=== PATIENT | female | born 1930 | race Caucasian/White ===

== ENCOUNTER 2017-11-30 21:02 | Inpatient (IN) | payer OTHER ==
--- NOTE | 2017-11-30 21:26 | PDOC ---
Rapid Medical Evaluation Chief Complaint: Cold Symptoms Time Seen by Provider: 11/30/17 21:20 Medical Evaluation: Allergies Allergy/AdvReac Type Severity Reaction Status Date / Time epinephrine AdvReac Elevated Verified 02/15/16 11:14 Blood Pressure 11/30/17 21:21 c/o chest congestion, cough and left sided chest painx 1 week. seen at [facility] . chest xray infiltrate cannot be excluded recommends CT pmhx: Hypothyroid, htn PMD: Dr. Patel Gardner PE: Patient alert ox3 coarse breath sounds A: chest pain \Plan: labs chest CT patient to the ER for further management of care. Discharge Disposition - Diagnosis Chest pain at rest - Referrals - Patient Instructions - Post Discharge Activity
[2017-11-30 22:13] LABS: BASO % 0.3 % (0-2.0); HEMATOCRIT 48.1 % (32.4-45.2); LYMPH % 6.7 % (8-40); MCH 31.4 pg (25.7-33.7); MCHC 33.3 g/dl (32.0-36.0); MEAN CELL VOLUME 94.1 fl (80-96); MEAN PLT VOLUME 8.5 fl (7.5-11.1); MONO % 8.2 % (3.8-10.2); NEUT % 84.8 % (42.8-82.8); PLATELET COUNT 179 K/MM3 (134-434); RBC 5.11 M/mm3 (3.60-5.2); RDW 13.8 % (11.6-15.6); WHITE BLOOD COUNT 18.4 K/mm3 (4.0-10.0)
[2017-11-30 22:37] LABS: INR 1.1 (0.82-1.09); PROTHROMBIN TIME (PATIENT) 12.4 SEC (9.7-13.0)
[2017-11-30 22:43] LABS: ALBUMIN 3.4 g/dl (3.4-5.0); ANION GAP 10 (8-16); BILIRUBIN,TOTAL 2.1 mg/dL (0.2-1.0); BLOOD UREA NITROGEN 14 mg/dL (7-18); CALCIUM 9.2 mg/dL (8.5-10.1); CHLORIDE 99 mmol/L (98-107); CO2 25 mmol/L (21-32); CREATININE 0.8 mg/dL (0.55-1.02); GLUCOSE,RANDOM 113 mg/dL (74-106); SGPT/ALT 27 U/L (12-78); SODIUM 134 mmol/L (136-145)
[2017-11-30 22:46] LABS: ALK PHOS 114 U/L (45-117); TOT PROT 7.9 g/dl (6.4-8.2)
--- NOTE | 2017-11-30 22:47 | PDOC ---
History of Present Illness - General History Source: Patient, Other Exam Limitations: No Limitations - History of Present Illness Initial Comments: 11/30/17 22:59 The patient is a 87 year old female, with a significant past medical history of HTN, diabetes (hypoglycemia, MVP, cardiomegaly and thyroid disease, who presents to the ED complaining of chest pain, post nasal drip, cough and chest constipation for the past week. She notes that she went to urgent care today and a chest x-ray was taken. She was told that she had interstitial lung disease , infiltration cannot be ruled out. She was advised to come to the ED for further evaluation. The patient denies shortness of breath, headache and dizziness. Denies fever, chills, nausea, vomiting, diarrhea or constipation. Denies dysuria, frequency, urgency and hematuria. Allergies: Epinephrine Past surgical history: Appendectomy, bilateral hip replacement Social history: No alcohol, tobacco or drug use reported PMD: Dr. Patel Gardner <Juan Andrade - Last Filed: 11/30/17 22:59> <Kavya Bueno - Last Filed: 12/01/17 01:18> - General Chief Complaint: Respiratory Stated Complaint: COUGH Time Seen by Provider: 11/30/17 21:20 Past History <Juan Andrade - Last Filed: 11/30/17 22:59> - Past Medical History COPD: No Diabetes: Yes (hyopglycemia) HTN: Yes Thyroid Disease: Yes - Surgical History Appendectomy: Yes - Suicide/Smoking/Psychosocial Hx Smoking Status: No Smoking History: Never smoked Number of Cigarettes Smoked Daily: 0 Information on smoking cessation initiated: No Hx Alcohol Use: No Drug/Substance Use Hx: No Substance Use Type: None <Kavya Bueno - Last Filed: 12/01/17 01:18> - Past Medical History Allergies/Adverse Reactions: Allergies Allergy/AdvReac Type Severity Reaction Status Date / Time epinephrine AdvReac Elevated Verified 02/15/16 11:14 Blood Pressure Home Medications: Ambulatory Orders Ramipril 2.5 mg PO DAILY 08/20/14 Spironolactone [Aldactone -] 25 mg PO DAILY 08/20/14 Thyroid,Pork [[place] Thyroid] 60 mg PO DAILY 08/20/14 Review of Systems - Review of Systems Able to Perform ROS?: Yes Comments:: 11/30/17 22:59 GENERAL/CONSTITUTIONAL: No fever or chills. No weakness. HEAD, EYES, EARS, NOSE AND THROAT: (+) Post nasal drip. No change in vision. No ear pain or discharge. No sore throat. GASTROINTESTINAL: No nausea, vomiting, diarrhea or constipation. GENITOURINARY: No dysuria, frequency, or change in urination. CARDIOVASCULAR: (+) Chest pain. No shortness of breath. RESPIRATORY: (+) Cough, chest congestion. No wheezing, or hemoptysis. MUSCULOSKELETAL: No joint or muscle swelling or pain. No neck or back pain. SKIN: No rash NEUROLOGIC: No headache, vertigo, loss of consciousness, or change in strength/ sensation. ENDOCRINE: No increased thirst. No abnormal weight change. HEMATOLOGIC/LYMPHATIC: No anemia, easy bleeding, or history of blood clots. ALLERGIC/IMMUNOLOGIC: No hives or skin allergy. <Juan Andrade - Last Filed: 11/30/17 22:59> *Physical Exam - Vital Signs Last Vital Signs Temp Pulse Resp BP Pulse Ox 98.2 F 100 H 20 159/95 96 11/30/17 21:20 11/30/17 21:20 11/30/17 21:20 11/30/17 21:20 11/30/17 21:20 - Physical Exam Comments: 11/30/17 23:00 Constitutional: Awake, alert, oriented. No acute distress. Head: Normocephalic. Atraumatic Eyes: PERRL. EOMI. Conjunctivae are not pale. ENT: Mucous membranes are moist and intact. Posterior pharynx without exudates or erythema. Uvula midline. Neck: Supple. Full ROM. No lymphadenopathy. Cardiovascular: Regular rate. Regular rhythm. S1, S2 regular. Distal pulses are 2+ and symmetric. Pulmonary/Chest: (+) Rales and coarse breath sound diffusely bilaterally. Abdominal: Soft and non-distended. There is no tenderness. No rebound, guarding or rigidity. No organomegaly. No palpable masses. Good bowel sounds. Back: No CVA tenderness. Musculoskeletal: No edema. No cyanosis. No clubbing. Full range of motion in all extremities. Nocalf tenderness. Radial/pedal pulses are intact and 2+ bilaterally Skin: Skin is warm and dry. No petechiae. No purpura. Neurological: Alert and oriented to person, place, and time. Cranial nerves II -XII are grossly intact. Normal speech. Strength is grossly symmetric. No sensory deficits. Psychiatric: Good eye contact. Normal interaction, affect and behavior. <Juan Andrade - Last Filed: 11/30/17 22:59> - Vital Signs Last Vital Signs Temp Pulse Resp BP Pulse Ox 98.2 F 100 H 20 159/95 96 11/30/17 21:20 11/30/17 21:20 11/30/17 21:20 11/30/17 21:20 11/30/17 21:20 <Kavya Bueno - Last Filed: 12/01/17 01:18> Heart Score/ECG Review - ECG Intrepretation Comment:: 11/30/17 22:46 sinus at 98, RBBB, L axis, abnl ekg, unchanged from prior 11/30/17 22:48 <Kavya Bueno - Last Filed: 12/01/17 01:18> ED Treatment Course - LABORATORY CBC & Chemistry Diagram: 11/30/17 21:56 11/30/17 21:56 - ADDITIONAL ORDERS Additional order review: Laboratory Results 11/30/17 21:56 PT with INR 12.40 INR 1.10 11/30/17 21:56 RBC 5.11 MCV 94.1 MCHC 33.3 RDW 13.8 MPV 8.5 Neutrophils % 84.8 H Lymphocytes % 6.7 L D Monocytes % 8.2 D Eosinophils % 0.0 D Basophils % 0.3 <Juan Andrade - Last Filed: 11/30/17 22:59> - LABORATORY CBC & Chemistry Diagram: 11/30/17 21:56 11/30/17 21:56 - ADDITIONAL ORDERS Additional order review: Laboratory Results 11/30/17 21:56 PT with INR 12.40 INR 1.10 11/30/17 21:56 RBC 5.11 MCV 94.1 MCHC 33.3 RDW 13.8 MPV 8.5 Neutrophils % 84.8 H Lymphocytes % 6.7 L D Monocytes % 8.2 D Eosinophils % 0.0 D Basophils % 0.3 <Kavya Bueno - Last Filed: 12/01/17 01:18> Medical Decision Making - Medical Decision Making 11/30/17 22:44 a/p: 87yo female presents for eval of cough x 1 week -dry cough, but feels rattling in her chest -post nasal gtt -sent from urgent care for poss interstitial lung disease with poss overlying pna -will sned labs, cultures, will obtain ct chest -will monitor and reassess 12/01/17 01:17 pt with bronchiectasis on imaigng concern for poss pna on imaging - abx ordered elevated wbc - concern given SOB and PNA. outpt cxr showed poss interstitial lung disease case discussed with Dr. Medellin from [facility] who accepts the patient to service. <Kavya Bueno - Last Filed: 12/01/17 01:18> *DC/Admit/Observation/Transfer - Attestations Scribe Attestion: 11/30/17 23:00 Documentation prepared by Juan Andrade, acting as medical laboratory technicians for Kavya Bueno DO <Juan Andrade - Last Filed: 11/30/17 22:59> <Kavya Bueno - Last Filed: 12/01/17 01:18> Diagnosis at time of Disposition: Chest pain at rest
[2017-11-30 23:02] LABS: MAGNESIUM 2.1 mg/dL (1.8-2.4); POTASSIUM 4.3 mmol/L (3.5-5.1)
[2017-11-30 23:03] LABS: SGOT/AST 35 U/L (15-37)
[2017-11-30] MEDS ORDERED: AZITHROMYCIN IVPB 500 MG in DEXTROSE 5%-WATER - 250 ML IVPB ONE (23:59)
[2017-11-30] MEDS ORDERED: CEFTRIAXONE 1 GM in DEXTROSE 5%-WATER - 100 ML IVPB ONE (23:59)
[2017-12-01] MEDS ORDERED: AZITHROMYCIN IVPB 250 ML IVPB ONE (01:14)
[2017-12-01] MEDS ORDERED: CEFTRIAXONE 1 GM/50 ML BAG ONE ×2 (01:14)
[2017-12-01] MEDS ORDERED: AZITHROMYCIN IVPB 500 MG in DEXTROSE 5%-WATER - 250 ML IVPB ONE (02:57)
--- NOTE | 2017-12-01 03:20 | HP ---
CHIEF COMPLAINT: cough shortness of breath, difficulty breathing PCP: HISTORY OF PRESENT ILLNESS: 87 y/o female with PMH HTN, DM, MVP, cardiomegaly, hypothyroidism presents with c/o difficulty breathing for the past week. Admits to gradual onset with associated non productive cough. States she feels mucus in the chest which makes it difficult to breathe, but cannot expel much mucus. Admits to chest tightness and pain with coughing. Denies past occurrence of similar symptoms. Went to [facility] urgent care today, and was told to come to ED. Denies: fevers, chills, palpitations, nausea, vomiting, diarrhea, constipation, hematuria, hematochezia, falls, LOC. ER course was notable for: (1) CT chest (2) Azithromycin, ceftriaxone (3) Recent Travel: PAST MEDICAL HISTORY: HTN, DM, MVP, cardiomegaly, hypothyroidism PAST SURGICAL HISTORY: Appendectomy, B/L hip replacement Social History: Smoking: denies Alcohol: denies Drugs: denies Family History: Allergies epinephrine Adverse Reaction (Verified 02/15/16 11:14) Elevated Blood Pressure HOME MEDICATIONS: Home Medications Medication Instructions Recorded Ramipril 2.5 mg PO DAILY 08/20/14 Spironolactone [Aldactone -] 25 mg PO DAILY 08/20/14 Thyroid [[place] Thyroid] 15 mg PO DAILY 12/01/17 REVIEW OF SYSTEMS CONSTITUTIONAL: Absent: fever, chills, diaphoresis, HEENT: Absent: rhinorrhea, nasal congestion, throat pain,difficulty swallowing CARDIOVASCULAR: Absent: syncope, palpitations, peripheral edema RESPIRATORY: Admits: cough, shortness of breath. Denies hemoptysis GASTROINTESTINAL: Absent: abdominal pain, abdominal distension, nausea, vomiting, diarrhea, constipation, hematochezia GENITOURINARY: Absent: dysuria, hematuria NEUROLOGIC: Absent: headache, focal weakness, dizziness, unsteady gait, PHYSICAL EXAMINATION Vital Signs - 24 hr 11/30/17 21:20 Temperature 98.2 F Pulse Rate 100 H Respiratory 20 Rate Blood Pressure 159/95 O2 Sat by Pulse 96 Oximetry (%) GENERAL: Awake, alert, and fully oriented, in no acute distress. HEAD: Normal with no signs of trauma. EYES: Pupils equal, round and reactive to light, extraocular movements intact EARS, NOSE, THROAT: Moist mucous membranes, LUNGS: Slight rhonchi auscultated B/L. No wheezes. HEART: Regular rate and rhythm, normal S1 and S2. No murmur ABDOMEN: Soft, nontender, not distended, normoactive bowel sounds, no guarding, no rebound. EXTREMITIES: 2+ pulses, warm, well-perfused. No peripheral edema in lower extremities. NEUROLOGICAL: Cranial nerves II-XII intact. Normal speech. Normal gait. PSYCHIATRIC: Cooperative. Appropriate mood and affect. Laboratory Results - last 24 hr 11/30/17 11/30/17 11/30/17 21:56 21:56 21:56 WBC 18.4 H RBC 5.11 Hgb 16.0 H Hct 48.1 H MCV 94.1 MCH 31.4 MCHC 33.3 RDW 13.8 Plt Count 179 MPV 8.5 Absolute Neuts (auto) 15.6 Neutrophils % 84.8 H Lymphocytes % 6.7 L D Monocytes % 8.2 D Eosinophils % 0.0 D Basophils % 0.3 Nucleated RBC % 0 PT with INR 12.40 INR 1.10 Sodium 134 L Potassium 4.3 Chloride 99 Carbon Dioxide 25 Anion Gap 10 BUN 14 Creatinine 0.8 Creat Clearance w eGFR > 60 Random Glucose 113 H Calcium 9.2 Magnesium 2.1 Total Bilirubin 2.1 H AST 35 ALT 27 Alkaline Phosphatase 114 Creatine Kinase 128 Troponin I < 0.02 B-Natriuretic Peptide Total Protein 7.9 Albumin 3.4 11/30/17 21:56 WBC RBC Hgb Hct MCV MCH MCHC RDW Plt Count MPV Absolute Neuts (auto) Neutrophils % Lymphocytes % Monocytes % Eosinophils % Basophils % Nucleated RBC % PT with INR INR Sodium Potassium Chloride Carbon Dioxide Anion Gap BUN Creatinine Creat Clearance w eGFR Random Glucose Calcium Magnesium Total Bilirubin AST ALT Alkaline Phosphatase Creatine Kinase Troponin I B-Natriuretic Peptide 561.80 H Total Protein Albumin ASSESSMENT/PLAN: 87 y/o female w/ PMH HTN, DM, MVP, cardiomegaly, hypothyroidism presents with difficulty breathing and non productive cough for past [address] chest showed fibrosis and scarring sugestive of ILD White count 18.4 -Begin ceftriaxone and azithromycin -Begin solumedrol -Pulmonary consult placed -f/u blood cx Pulmonary nodules -?Malignancy -Heme/Onc consult placed. Elevated BNP -Echocardiography to assess CHF FEN -No IV fluids at this time d/t possible CHF -No electrolyte repletion -DM diet Prophylaxis -Lovenox 40mg subq [id number] Advance directives: full code Disposition: admit to medical-surgical floor Case discussed with operations manager/coordinator attending Wellington Love DO PGY1 Visit type - Emergency Visit Emergency Visit: Yes ED Registration Date: 12/01/17 Care time: The patient presented to the Emergency Department on the above date and was hospitalized for further evaluation of their emergent condition. - New Patient This patient is new to me today: Yes Date on this admission: 12/01/17 - Critical Care Critical Care patient: No Hospitalist Screening - Colonoscopy Questionnaire Colonoscopy Questionnaire: Colonoscopy Questionnaire - Patient: 50 - 75 years old and never had a screening colonoscopy: Unknown History of colon or rectal polyps, or CA: Unknown History of IBD, Crohn's disease or UC: Unknown History of abdominal radiation therapy as a child: Unknown - Relative: 1 with colon or rectal CA, or polyps at age 60 or younger: Unknown Colon or rectal CA diagnosed at age 45 or younger: Unknown Multiple relatives with colon or rectal CA: Unknown - Outcome: Screening Result: Negative Screen
--- NOTE | 2017-12-01 03:36 | PN ---
Teaching Attending Note Name of Resident: Wellington Love ATTENDING PHYSICIAN STATEMENT I saw and evaluated the patient. I reviewed the resident's note and discussed the case with the resident. I agree with the resident's findings and plan as documented. SUBJECTIVE: Patient is an 87 year old woman with history of HTN, DM, MVP, cardiomegaly, hypothyroidism, bilateral hip replacement who presents with complaint of difficulty breathing for the past week. Admits to gradual onset with associated non productive cough. States she feels mucus in the chest which makes it difficult to breathe, but cannot expel much mucus. Admits to chest tightness and pain with coughing. Denies past occurrence of similar symptoms. Went to [facility] urgent care, and was told to go to ER. Also has left ear pain. OBJECTIVE: Alert and in no acute respiratory distress Vital Signs Period Temp Pulse Resp BP Sys/Calderón Pulse Ox Last 24 Hr 98.2 F 100 20 159/95 96 HEENT: No Jaundice, eye redness or discharge, PERRLA, EOMI. Normocephalic, atraumatic. Tender left ear with fluid;hearing is grossly intact. No nasal discharge. Neck: Supple, nontender. No palpable adenopathy or thyromegaly. No JVD Chest: Good effort. Clear to auscultation and percussion. Heart: Regular. No S3, rub or murmur Abdomen: Not distended, soft, nontender and no HSM. No rebound or guarding. Normoactive bowel sounds. Ext: Peripheral pulses intact. No leg edema. Skin: Warm and dry. No petechiae, rash or ecchymosis. Neuro: Alert. Oriented x3. CN 2-12 grossly intact. Sensation grossly intact in all four extremities and DTR are symmetric. Current Medications Generic Name Dose Route Start Last Admin Trade Name Freq PRN Reason Stop Dose Admin Azithromycin 500 mg/ Dextrose 250 mls @ 250 mls/hr 12/01/17 02:57 12/01/17 03 :41 IVPB 12/01/17 03:56 Not Given ONCE ONE Ceftriaxone Sodium 1 gm/ 50 mls @ 100 mls/hr 12/01/17 10:00 Dextrose IVPB DAILY DANETTE Methylprednisolone Sodium Succinate 40 mg 12/01/17 03:00 Solu-Medrol - IVPUSH Q8H-IV DANETTE Home Medications Medication Instructions Recorded Ramipril 2.5 mg PO DAILY 08/20/14 Spironolactone [Aldactone -] 25 mg PO DAILY 08/20/14 Thyroid [[place] Thyroid] 15 mg PO DAILY 12/01/17 Abnormal Lab Results 11/30/17 11/30/17 11/30/17 21:56 21:56 21:56 WBC 18.4 H Hgb 16.0 H Hct 48.1 H Neutrophils % 84.8 H Lymphocytes % 6.7 L D Sodium 134 L Random Glucose 113 H Total Bilirubin 2.1 H B-Natriuretic Peptide 561.80 H ASSESSMENT AND PLAN: 1. Atypical pneumonia - CT scan of chest shows fibrosis and scarring with long nodules as well as lymphadenopathy. 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 She is oxygenating well and comfortable off oxygen. Will treat with IV Rocephin and Azithromycin for atypical pneumonia that may be superimposed on interstitial lung disease (? idiopathic). Will also give her solumedrol, check legionella antigen, consult ID and pulmonary. Workup for autoimmune diseases as well as sarcoidosis. get ECHO. 2. Left ear pain - May have otitis externa. She is already on antibiotics and steroids. Treat with acetic acid ear drops and consult ENT. 3. DVT prophylaxis - Lovenox 40 mg SQ q 24 hours. 4. Advance directives - Full code
[2017-12-01] MEDS ORDERED: methylPREDNISolone NA SUCC 40 MG/1 ML VIAL ONE (03:51)
[2017-12-01] MEDS: methylPREDNISolone NA SUCC 40 MG/1 ML VIAL IVPUSH SCH ×3 (03:55→17:25)
[2017-12-01 07:59] VITALS: BMI 23.3
[2017-12-01] MEDS ORDERED: PNEUMOC 13-VAL CONJ-DIP CRM/PF 0.5 ML DISP.SYRIN IM ONE (09:00)
--- NOTE | 2017-12-01 09:03 | PN ---
Progress Note (short form) - Note Progress Note: ID consult dictated imp/reccd 87 year old female admitted with nonproductive cough for one week, leukocytosis , abnl cxray/chest ct (results pending) ?ILD ?bronchiectasis recent anorexia, laryngitis acute illness no travel CAP- agree with rocephin/zith no hospitalizations, no outpt antibiotics legionella urinary antigen ?ILD, ?bronchiectasis- esr estephania/rf pulmonary to see Problem List - Problems (1) Pneumonia Code(s): J18.9 - PNEUMONIA, UNSPECIFIED ORGANISM (2) ILD (interstitial lung disease) Code(s): J84.9 - INTERSTITIAL PULMONARY DISEASE, UNSPECIFIED
--- NOTE | 2017-12-01 09:23 | EKG ---
Test Reason : Blood Pressure : / mmHG Vent. Rate : 098 BPM Atrial Rate : 098 BPM P-R Int : 174 ms QRS Dur : 134 ms QT Int : 366 ms P-R-T Axes : 030 -33 -15 degrees QTc Int : 467 ms NORMAL SINUS RHYTHM POSSIBLE LEFT ATRIAL ENLARGEMENT LEFT AXIS DEVIATION RIGHT BUNDLE BRANCH BLOCK ABNORMAL ECG WHEN COMPARED WITH ECG OF 20-AUG-2014 18:46, NO SIGNIFICANT CHANGE WAS FOUND Confirmed by MAIA JOSHI MD ([id number]) on 12/01/2017 9:23:38 AM Referred By: Confirmed By:MAIA JOSHI MD
[2017-12-01] MEDS ORDERED: cefTRIAXone SODIUM 1 GM VIAL ONE (09:38)
[2017-12-01] MEDS ORDERED: DEXTROSE 5%-WATER - 50 ML IVPB ONE (09:38)
--- NOTE | 2017-12-01 09:45 | CONS ---
DATE OF CONSULTATION: DATE OF DICTATION: 12/01/2017 This is an 87-year-old woman. She lives in the community. 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 She developed a cough about a week ago, accompanied by loss of appetite and weight loss. It has been a nonproductive cough. She has had some sweats at night. She overall has failed to improve. Yesterday as well she developed laryngitis. She went to an urgent care center yesterday where she had a chest x-ray done and advised to seek care in the emergency room. She denies actual fevers but has noted she has had some sweats. She has had no appetite. She has had no vomiting. She has no diarrhea or dysuria. She notes the loss of appetite since yesterday. She has no sore throat. PAST MEDICAL HISTORY: Notable for diabetes, hypertension, hypothyroidism. She has a history of mitral valve prolapse and cardiomegaly. PAST SURGICAL HISTORY: Notable for appendectomy, tonsillectomy and adenoid removal. She has had a left inguinal hernia repair, and she has had both her hips replaced. This was about 20 years ago. ALLERGIES: EPINEPHRINE. MEDICATIONS: Her medications as an outpatient include ramipril, spironolactone, and pork thyroid. She is followed by Dr. Justice Gardner in [place]. She reports the last time she had a chest x-ray was 2-3 years ago. SOCIAL HISTORY: She lives alone. 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 She was born and raised in [place]. Her last travel was 4 years ago to [place]. She lives in an apartment. There is no history of any cigarette use. REVIEW OF SYSTEMS: She denies shortness of breath. She denies any chest pain, and she denies sore throat. PHYSICAL EXAMINATION: General: She is awake and alert. Vital Signs: T-max is 99.6, pulse of 95, blood pressure 128/71. Respiratory rate is 18. She weighs 61 kg. HEENT: She is normocephalic. Her eyes are anicteric. She has no thrush or pharyngitis. Neck: Supple. Respiratory: Her lungs have crackles at the right base. Heart: Regular rate and rhythm. Abdomen: Firm, nontender. Extremities: Without edema. LABORATORY: White count is 18.4, hemoglobin 16. Platelets are 179. BUN and creatinine are 14 and 0.8. LFTs are normal. Blood cultures have been sent, and she had a CAT scan of the chest, results of which are pending, but to my eyes it looks like she has some interstitial lung disease with bronchiectasis as well. She has some left lower lobe and right lower lobe bronchiectasis and possible infiltrate. As well, she denies a history of tuberculosis. SUMMARY: This is an 87-year-old woman admitted with cough, leukocytosis, abnormal chest x-ray. Interestingly, she has a film here from 2011 that is normal, but she has not been admitted here. There is no history of any recent episodes of pneumonia. She reports an episode of bronchitis about 4-5 years ago, which is the last time she states she took antibiotics. Given this, I think it would be reasonable to treat her for community-acquired pneumonia. Would obtain a Legionella urinary antigen since it would be important to screen her for atypical pneumonia. Blood cultures have been sent. Would treat her with ceftriaxone and Zithromax. She has been started on steroids as well, so will order a sedimentation rate and CRP, though they may be of limited value, with further recommendations to follow. Will await the official reading of the CAT scan of her chest. CHINEDU FROST M.D. [id number]
[2017-12-01] MEDS ORDERED: CEFTRIAXONE 1 GM in DEXTROSE 5%-WATER - 50 ML IVPB SCH (10:00)
[2017-12-01] MEDS: ENOXAPARIN NA (PORCINE) 40 MG/0.4 ML DISP.SYRIN SQ SCH (10:07)
[2017-12-01] MEDS ORDERED: THYROID 15 MG TABLET PO SCH (10:30)
[2017-12-01] MEDS ORDERED: RAMIPRIL 2.5 MG CAPSULE (FP) PO SCH (10:30)
[2017-12-01 10:37] LABS: BASO % 0.1 % (0-2.0); HEMATOCRIT 41.2 % (32.4-45.2); HEMOGLOBIN 13.8 GM/dL (10.7-15.3); MCH 31.7 pg (25.7-33.7); MCHC 33.6 g/dl (32.0-36.0); MEAN CELL VOLUME 94.3 fl (80-96); MEAN PLT VOLUME 8.8 fl (7.5-11.1); NEUT % 94.9 % (42.8-82.8); PLATELET COUNT 157 K/MM3 (134-434); RBC 4.37 M/mm3 (3.60-5.2); RDW 13.6 % (11.6-15.6); WHITE BLOOD COUNT 19.8 K/mm3 (4.0-10.0)
[2017-12-01] MEDS: SPIRONOLACTONE 25 MG TABLET (FP) PO SCH (11:13)
[2017-12-01 11:14] LABS: CHLORIDE 100 mmol/L (98-107); POTASSIUM 4.1 mmol/L (3.5-5.1); SODIUM 134 mmol/L (136-145)
[2017-12-01 11:19] LABS: ANION GAP 9 (8-16); BLOOD UREA NITROGEN 12 mg/dL (7-18); CALCIUM 8.7 mg/dL (8.5-10.1); CO2 25 mmol/L (21-32); CREATININE 0.7 mg/dL (0.55-1.02); GLUCOSE,RANDOM 182 mg/dL (74-106); MAGNESIUM 2.2 mg/dL (1.8-2.4); PHOSPHOROUS 2.4 mg/dL (2.5-4.9)
[2017-12-01 12:39] LABS: ANISOCYTOSIS 2+; MACROCYTOSIS 0; PLATELET ESTIMATE DECREASED
[2017-12-01] MEDS: RAMIPRIL 5 MG CAPSULE (FP) PO SCH (13:41)
[2017-12-01] MEDS: THYROID 30 MG TABLET PO SCH (13:42)
--- NOTE | 2017-12-01 16:30 | PN ---
Progress Note (short form) - Note Progress Note: PULMONARY CONSULTATION DICTATED 12/01/17 IMP ADVANCED ILD/BRONCHIECTASIS ACUTE BRONCHITIS ,?PNEUMONIA BILATERAL PULMONARY NODULES ? INFLAMMATORY,?MALIGNANT HTN DM MVP PLAN IV STEROIDS INHALED BRONCHODILATORS O2 ABX PER ID SPUTUM C+S PFTS OUTPATIENT F/U CHEST CT [address] [place] Problem List - Problems (1) Bronchiectasis Code(s): J47.9 - BRONCHIECTASIS, UNCOMPLICATED (2) ILD (interstitial lung disease) Code(s): J84.9 - INTERSTITIAL PULMONARY DISEASE, UNSPECIFIED (3) Lung nodules Code(s): R91.8 - OTHER NONSPECIFIC ABNORMAL FINDING OF LUNG FIELD (4) HTN (hypertension) Code(s): I10 - ESSENTIAL (PRIMARY) HYPERTENSION (5) Mitral valve prolapse Code(s): I34.1 - NONRHEUMATIC MITRAL (VALVE) PROLAPSE
--- NOTE | 2017-12-01 17:05 | CONS ---
DATE OF CONSULTATION: 12/01/2017 PULMONARY CONSULTATION REFERRING PHYSICIAN: Angie Bryant M.D. HISTORY OF PRESENT ILLNESS: The patient is an 87-year-old white female with past medical history of hypertension, mitral valve prolapse, diabetes, cardiomegaly, hypothyroidism, nonsmoker, admitted to [facility] with complaint of 1-week history of increasing shortness of breath, cough, chest congestion, chills, and questionable fevers. Patient states the patient week she started developing a nonproductive cough. She also states she felt chills and has sweats at night. She also complains of chest tightness and increasing shortness of breath. She apparently went to a [facility] urgent care center on the day of admission, at which time she was told to go to the emergency room. In the emergency room she had CT scan of the chest which revealed evidence of extensive bilateral interstitial lung disease with bronchiectatic changes as well as two pulmonary nodules, one in the left lower lobe of 1 cm, as well as one in the right middle lobe of 4 mm. Patient denies any history of asthma or COPD. She denies any history of occupational exposures. She is a nonsmoker. Denies any weight loss or night sweats. Denies any hemoptysis. On admission, she was placed on inhaled bronchodilators, and steroids, evaluated by Dr. Hamlin from infectious disease and placed on antibiotics for possible pneumonia. The patient also gives a history of past year or so progressive increasing shortness of breath and dyspnea on exertion for walking up inclines. Denies any chest pains or palpitations associated with this. She apparently states she has had x-rays in the past, was not informed of any abnormalities. PAST MEDICAL HISTORY: Again includes mitral valve prolapse, hypertension, diabetes, cardiomegaly, and hypothyroidism. REVIEW OF SYSTEMS: Positive cough. Positive chest congestion. Question subjective fevers. Positive chills. No chest pain. No palpitations. No abdominal pain. No lower extremity edema. CURRENT MEDICATIONS: Include Solu-Medrol 40 q.8, Altace, ceftriaxone, Lovenox, Aldactone, and [place] Thyroid. PHYSICAL EXAMINATION: General: The patient is an elderly white female, well-developed, awake, alert, in no acute distress. Vital signs: She is afebrile. Blood pressure 116/62, respiratory rate 18, O2 saturation is 95% on room air. HEENT: Head is normocephalic, atraumatic. Neck: Supple. Heart: Regular. S1, S2. Chest: Bilateral crackles, a few scattered bilateral rhonchi. Abdomen: Soft. Bowel sounds positive. Extremities: No cyanosis, edema. LABORATORY: WBC is 19.8, hemoglobin 13.8, hematocrit 41.2, platelet count of 157,000. There were 94 polys and 3 lymphocytes. INR is 1.10. Sodium 134, BUN 12, creatinine 0.7, BNP 561. Chest CT, again as noted, revealed extensive bronchiectatic changes, extensive chronic interstitial lung disease bilaterally with extensive fibrosis and extensive bronchiectasis, most pronounced within the lingula and left upper lobe. There is 1 cm nodule left lung base and 4 mm nodule right middle lobe. IMPRESSION: 1. Interstitial lung disease. Left lower lobe nodule and right middle lobe nodule, possible inflammatory, possible malignancy. 2. Bronchiectasis. 3. Rule out possible pneumonia versus acute bronchitis. 4. Hypertension. 5. Mitral valve prolapse. PLAN: Continue antibiotic therapy as per infectious disease. Inhaled bronchodilators. Supplemental O2. IV steroids. Include an ESR, SUNSHINE rheumatoid factor, PFTs as outpatient. Also obtain followup chest CT in 3 months to document stability of pulmonary nodules if evidence of interval growth, would recommend PET scan as well as possible biopsy. STEPHENIE BRADFORD M.D. TOSHIA/[id number] MTDD
--- NOTE | 2017-12-01 18:32 | PN ---
Teaching Attending Note Name of Resident: Harris Hong ATTENDING PHYSICIAN STATEMENT I saw and evaluated the patient. I reviewed the resident's note and discussed the case with the resident. I agree with the resident's findings and plan as documented with exceptions below. SUBJECTIVE: Patient seen and examined, breathing improved, no fevers, chills or new concerns. feels better today. OBJECTIVE: Vital Signs Period Temp Pulse Resp BP Sys/Calderón Pulse Ox Last 24 Hr 97.6 F-99.6 F 87-100 18-20 116-159/62-95 94-99 Intake & Output 11/28/17 11/29/17 11/30/17 12/01/17 23:59 23:59 23:59 23:59 Intake Total 580 Balance 580 Weight 150 lb 136 lb 1.6 oz General: sitting in bed, able to talk in full sentences Chest: decreased air entry, fine scattered rales Abdomen:soft, NT, ND Extremities: no edema Home Medications Medication Instructions Recorded Ramipril 5 mg PO DAILY 08/20/14 Spironolactone [Aldactone -] 25 mg PO DAILY 08/20/14 Cyanocobalamin Vit B-12 Inj. 1,000 mcg IJ MONTHLY 12/01/17 [Redisol] Thyroid [[place] Thyroid] 30 mg PO DAILY 12/01/17 Active Medications Enoxaparin Sodium (Lovenox -) 40 mg SQ DAILY [facility] Last Admin: 12/01/17 10:07 Dose: 40 mg Ceftriaxone Sodium 1 gm/ (Dextrose) 50 mls @ 100 mls/hr IVPB DAILY [facility] Methylprednisolone Sodium Succinate (Solu-Medrol -) 40 mg IVPUSH Q8H-IV [facility] Last Admin: 12/01/17 17:25 Dose: 40 mg Ramipril (Altace -) 5 mg PO DAILY [facility] Last Admin: 12/01/17 13:41 Dose: 5 mg Spironolactone (Aldactone -) 25 mg PO DAILY [facility] Last Admin: 12/01/17 11:13 Dose: 25 mg Thyroid ([place] Thyroid -) 30 mg PO DAILY [facility] Last Admin: 12/01/17 13:42 Dose: 30 mg Laboratory Results - last 24 hr 11/30/17 11/30/17 11/30/17 21:56 21:56 21:56 WBC 18.4 H RBC 5.11 Hgb 16.0 H Hct 48.1 H MCV 94.1 MCH 31.4 MCHC 33.3 RDW 13.8 Plt Count 179 MPV 8.5 Absolute Neuts (auto) 15.6 Neutrophils % 84.8 H Neutrophils % (Manual) Band Neutrophils % Lymphocytes % 6.7 L D Lymphocytes % (Manual) Monocytes % 8.2 D Monocytes % (Manual) Eosinophils % 0.0 D Eosinophils % (Manual) Basophils % 0.3 Basophils % (Manual) Myelocytes % (Man) Promyelocytes % (Man) Blast Cells % (Manual) Nucleated RBC % 0 Metamyelocytes Hypochromia Platelet Estimate Polychromasia Poikilocytosis Anisocytosis Microcytosis Macrocytosis PT with INR 12.40 INR 1.10 Sodium 134 L Potassium 4.3 Chloride 99 Carbon Dioxide 25 Anion Gap 10 BUN 14 Creatinine 0.8 Creat Clearance w eGFR > 60 Random Glucose 113 H Calcium 9.2 Phosphorus Magnesium 2.1 Total Bilirubin 2.1 H AST 35 ALT 27 Alkaline Phosphatase 114 Creatine Kinase 128 Troponin I < 0.02 B-Natriuretic Peptide Total Protein 7.9 Albumin 3.4 11/30/17 12/01/17 12/01/17 21:56 10:03 10:03 WBC 19.8 H RBC 4.37 Hgb 13.8 Hct 41.2 MCV 94.3 MCH 31.7 MCHC 33.6 RDW 13.6 Plt Count 157 MPV 8.8 Absolute Neuts (auto) 18.7 Neutrophils % 94.9 H Neutrophils % (Manual) 90.8 H Band Neutrophils % 3.7 Lymphocytes % 3.0 L D Lymphocytes % (Manual) 0.9 L Monocytes % 2.0 L Monocytes % (Manual) 4 Eosinophils % 0.0 Eosinophils % (Manual) 0.0 Basophils % 0.1 Basophils % (Manual) 0.0 Myelocytes % (Man) 0 Promyelocytes % (Man) 0 Blast Cells % (Manual) 0 Nucleated RBC % 0 Metamyelocytes 1 Hypochromia 0 Platelet Estimate Decreased Polychromasia 0 Poikilocytosis 0 Anisocytosis 2+ Microcytosis 2+ Macrocytosis 0 PT with INR INR Sodium 134 L Potassium 4.1 Chloride 100 Carbon Dioxide 25 Anion Gap 9 BUN 12 Creatinine 0.7 Creat Clearance w eGFR > 60 Random Glucose 182 H Calcium 8.7 Phosphorus 2.4 L Magnesium 2.2 Total Bilirubin AST ALT Alkaline Phosphatase Creatine Kinase Troponin I B-Natriuretic Peptide 561.80 H Total Protein Albumin Microbiology 12/01/17 10:15 Urine For Antigen Detection Legionella Antigen - Final 12/01/17 10:15 Urine For Antigen Detection Streptococcus pneumoniae Antigen (M - Final ASSESSMENT AND PLAN: 87 yof with PMHx of HTN, DM, MVP, cardiomegaly, hypothyroidism admitted with dyspnea, found with interstitial lung disease, lung nodules and possible CAP vs acute bronchitis. -Possible CAP vs acute bronchitis -INtersititial lung disease -Lung nodules -Hyperglycemia, ?steroid induced -Leucocytosis, worsened from ?steroid induced margination as clinically better -HTN -DM -MVP -Cardiomegaly -Hypothyroidism Plan: ID/pulmonary input noted. Ceftriaxone/azithromycin day 1. Legionella studies neg. Sputum cultures if available. IV steroids, standing and prn nebs. Place on ISS, diabetic diet, check A1c. Trend CBC Continue home ACEi/spironolactone with monitoring of K levels/renal function DVTPPX with lovenox DIspo planning pending clinical improvement. Plan discussed with patient in detail, all questions answered.
--- NOTE | 2017-12-01 19:23 | PN ---
Physical Exam: SUBJECTIVE: Patient seen and examined this morning at bedside. Patient says her breathing has improved but continues to have a nonproductive cough. Patient also experiences hoarseness. Denies fevers, chills, chest pain, nausea, vomiting, diarrhea. OBJECTIVE: Vital Signs Period Temp Pulse Resp BP Sys/Calderón Pulse Ox Last 24 Hr 97.6 F-99.6 F 87-100 18-20 116-159/62-95 94-99 Vital Signs Temp 97.6 F 12/01/17 15:22 Pulse 87 12/01/17 15:22 Resp 18 12/01/17 15:22 BP 116/62 12/01/17 15:22 Pulse Ox 95 12/01/17 09:00 Intake & Output 11/30/17 12/01/17 12/01/17 23:59 11:59 23:59 Intake Total 580 Balance 580 Weight 68.039 kg 61.734 kg Intake: Oral 580 Other: Voiding Method Toilet Toilet # Unmeasured Voids Void 0 2 Bowel Movement No No Height 1.63 m 1.63 m Body Mass Index (BMI) 25.7 23.3 Weight Measurement Method Estimated by Staff GENERAL: The patient is awake, alert, and fully oriented, in no acute distress. THROAT: Oropharynx clear without exudates, Nonerythematous, with moist mucous membranes. LUNGS: Breath sounds equal, Decreased airway effort, Wheezes and rales present HEART: Regular rate and rhythm, S1, S2 without murmur, rub or gallop. ABDOMEN: Soft, nontender, nondistended, normoactive bowel sounds Laboratory Results - last 24 hr 11/30/17 11/30/17 11/30/17 21:56 21:56 21:56 WBC 18.4 H RBC 5.11 Hgb 16.0 H Hct 48.1 H MCV 94.1 MCH 31.4 MCHC 33.3 RDW 13.8 Plt Count 179 MPV 8.5 Absolute Neuts (auto) 15.6 Neutrophils % 84.8 H Neutrophils % (Manual) Band Neutrophils % Lymphocytes % 6.7 L D Lymphocytes % (Manual) Monocytes % 8.2 D Monocytes % (Manual) Eosinophils % 0.0 D Eosinophils % (Manual) Basophils % 0.3 Basophils % (Manual) Myelocytes % (Man) Promyelocytes % (Man) Blast Cells % (Manual) Nucleated RBC % 0 Metamyelocytes Hypochromia Platelet Estimate Polychromasia Poikilocytosis Anisocytosis Microcytosis Macrocytosis PT with INR 12.40 INR 1.10 Sodium 134 L Potassium 4.3 Chloride 99 Carbon Dioxide 25 Anion Gap 10 BUN 14 Creatinine 0.8 Creat Clearance w eGFR > 60 Random Glucose 113 H Calcium 9.2 Phosphorus Magnesium 2.1 Total Bilirubin 2.1 H AST 35 ALT 27 Alkaline Phosphatase 114 Creatine Kinase 128 Troponin I < 0.02 B-Natriuretic Peptide Total Protein 7.9 Albumin 3.4 11/30/17 12/01/17 12/01/17 21:56 10:03 10:03 WBC 19.8 H RBC 4.37 Hgb 13.8 Hct 41.2 MCV 94.3 MCH 31.7 MCHC 33.6 RDW 13.6 Plt Count 157 MPV 8.8 Absolute Neuts (auto) 18.7 Neutrophils % 94.9 H Neutrophils % (Manual) 90.8 H Band Neutrophils % 3.7 Lymphocytes % 3.0 L D Lymphocytes % (Manual) 0.9 L Monocytes % 2.0 L Monocytes % (Manual) 4 Eosinophils % 0.0 Eosinophils % (Manual) 0.0 Basophils % 0.1 Basophils % (Manual) 0.0 Myelocytes % (Man) 0 Promyelocytes % (Man) 0 Blast Cells % (Manual) 0 Nucleated RBC % 0 Metamyelocytes 1 Hypochromia 0 Platelet Estimate Decreased Polychromasia 0 Poikilocytosis 0 Anisocytosis 2+ Microcytosis 2+ Macrocytosis 0 PT with INR INR Sodium 134 L Potassium 4.1 Chloride 100 Carbon Dioxide 25 Anion Gap 9 BUN 12 Creatinine 0.7 Creat Clearance w eGFR > 60 Random Glucose 182 H Calcium 8.7 Phosphorus 2.4 L Magnesium 2.2 Total Bilirubin AST ALT Alkaline Phosphatase Creatine Kinase Troponin I B-Natriuretic Peptide 561.80 H Total Protein Albumin Active Medications Enoxaparin Sodium (Lovenox -) 40 mg SQ DAILY [facility] Last Admin: 12/01/17 10:07 Dose: 40 mg Ceftriaxone Sodium 1 gm/ (Dextrose) 50 mls @ 100 mls/hr IVPB DAILY [facility] Insulin Aspart (Novolog Vial Sliding Scale -) 1 vial SQ ACHS [facility]; Protocol Methylprednisolone Sodium Succinate (Solu-Medrol -) 40 mg IVPUSH Q8H-IV [facility] Last Admin: 12/01/17 17:25 Dose: 40 mg Ramipril (Altace -) 5 mg PO DAILY [facility] Last Admin: 12/01/17 13:41 Dose: 5 mg Spironolactone (Aldactone -) 25 mg PO DAILY [facility] Last Admin: 12/01/17 11:13 Dose: 25 mg Thyroid ([place] Thyroid -) 30 mg PO DAILY [facility] Last Admin: 12/01/17 13:42 Dose: 30 mg ASSESSMENT/PLAN: 87 y/o female w/ PMH HTN, DM, MVP, cardiomegaly, hypothyroidism presents with difficulty breathing and non productive cough for past 1 week. 1. Bronchitis vs. CAP - CT chest: Extensive chronic interstitial lung disease with no definite evidence of acute pathology within the chest. Bilateral pulmonary nodules - WBC increased to 19.8 from 18.4 in ED, possibly due to steroid use - Trend WBC - Urine Legionella antigen and Strep Penumo Antigen: Negative - Continue Ceftriaxone and Azithromycin (started in ED on 12/01/17) - Continue Solu-Medrol 40 mg IVPUSH Q8H-IV [facility] - Blood culture pending - Will order sputum cultures - ID (Dr. Hamlin) Consult: Agree with nanette/young, legionella urinary antigen, esr, estephania/rf - Pulmonology (Dr. Anthony) Consult: IV STEROIDS, INHALED BRONCHODILATORS, O2, ABX PER ID, SPUTUM C+S, PFTS OUTPATIENT, F/U CHEST CT 3 MONTHS 2. Pulmonary nodules - ?Malignancy - Pulmonology (Dr. Anthony) Consult: F/U CHEST CT 3 MONTHS 3. Elevated BNP 2/2 ?CHF - Echo: LV Systolic function normal, impaired LV Function, Trace to mild MR, Mild TR, Mild AR, Mild PV Regurg 4. Hyperglycemia - BG 113 --> 182, possibly due to steroid use - ISS, BGM ACHS - Check Hgb A1c 5. HTN - Controlled - Continue Ramipril 5 mg PO DAILY - Continue Spironolactone 25 mg PO DAILY 6. Hypothyroidism - Continue [place] Thyroid 30 mg PO DAILY [facility] 7. FEN - No IV fluids at this time - No electrolyte repletion - DM diet 8. PPx - Lovenox 40mg subq [id number] Visit type - Emergency Visit Emergency Visit: No - New Patient This patient is new to me today: No - Critical Care Critical Care patient: No
[2017-12-01] MEDS: INSULIN SLIDING SCALE (NOVOLOG) 1 VIAL SQ SCH (22:17)
[2017-12-02] MEDS: methylPREDNISolone NA SUCC 40 MG/1 ML VIAL IVPUSH SCH ×3 (01:59→17:26)
[2017-12-02] MEDS: INSULIN SLIDING SCALE (NOVOLOG) 1 VIAL SQ SCH ×4 (06:05→21:38)
--- NOTE | 2017-12-02 09:41 | PN ---
Progress Note, Physician History of Present Illness: Awake, alert Seated in bed + Dry cough No c/o chest pain or dyspnea No fever/ chills - Current Medication List Current Medications: Active Medications Enoxaparin Sodium (Lovenox -) 40 mg SQ DAILY [facility] Last Admin: 12/01/17 10:07 Dose: 40 mg Ceftriaxone Sodium 1 gm/ (Dextrose) 50 mls @ 100 mls/hr IVPB DAILY [facility] Insulin Aspart (Novolog Vial Sliding Scale -) 1 vial SQ ACHS [facility]; Protocol Last Admin: 12/02/17 06:05 Dose: Not Given Methylprednisolone Sodium Succinate (Solu-Medrol -) 40 mg IVPUSH Q8H-IV [facility] Last Admin: 12/02/17 01:59 Dose: 40 mg Ramipril (Altace -) 5 mg PO DAILY [facility] Last Admin: 12/01/17 13:41 Dose: 5 mg Spironolactone (Aldactone -) 25 mg PO DAILY [facility] Last Admin: 12/01/17 11:13 Dose: 25 mg Thyroid ([place] Thyroid -) 30 mg PO DAILY [facility] Last Admin: 12/01/17 13:42 Dose: 30 mg - Objective Vital Signs: Vital Signs Temperature 97.5 F L 12/02/17 06:10 Pulse Rate 75 12/02/17 06:10 Respiratory Rate 20 12/02/17 06:10 Blood Pressure 134/73 12/02/17 06:10 O2 Sat by Pulse Oximetry (%) 94 L 12/01/17 21:00 Constitutional: Yes: No Distress Eyes: Yes: Conjunctiva Clear Cardiovascular: Yes: Regular Rate and Rhythm, S1, S2 Respiratory: Yes: Other (rales R > L base) Edema: No Labs: CBC, BMP 12/01/17 10:03 12/01/17 10:03 INR, PTT INR 1.10 (0.82-1.09) 11/30/17 21:56 Assessment/Plan ILD Bronchiectasis ? Pneumonia Await c/s Continue zithromax/ ceftriaxone
[2017-12-02] MEDS ORDERED: AZITHROMYCIN IVPB 500 MG in DEXTROSE 5%-WATER - 250 ML IVPB SCH (10:00)
[2017-12-02] MEDS ORDERED: cefTRIAXone SODIUM 1 GM VIAL ONE (10:21)
[2017-12-02] MEDS ORDERED: PT OWN MED DRAWER 7, Y5N ONE (10:21)
[2017-12-02] MEDS ORDERED: DEXTROSE 5%-WATER - 50 ML IVPB ONE (10:21)
[2017-12-02] MEDS: CEFTRIAXONE 1 GM in DEXTROSE 5%-WATER - 50 ML IVPB SCH (10:34)
[2017-12-02] MEDS: SPIRONOLACTONE 25 MG TABLET (FP) PO SCH (10:34)
[2017-12-02] MEDS: RAMIPRIL 5 MG CAPSULE (FP) PO SCH (10:34)
[2017-12-02] MEDS: THYROID 30 MG TABLET PO SCH (10:35)
[2017-12-02] MEDS: ENOXAPARIN NA (PORCINE) 40 MG/0.4 ML DISP.SYRIN SQ SCH (10:35)
--- NOTE | 2017-12-02 12:27 | PN ---
Progress Note (short form) - Note Progress Note: NAD in bed. Some dry cough. No hemoptysis. No CP. Intake & Output 11/29/17 11/30/17 12/01/17 12/02/17 23:59 23:59 23:59 23:59 Intake Total 580 320 Balance 580 320 Weight 150 lb 136 lb 1.6 oz Last Vital Signs Temp Pulse Resp BP Pulse Ox 97.5 F L 82 18 120/61 94 L 12/02/17 06:10 12/02/17 10:00 12/02/17 10:00 12/02/17 10:00 12/01/17 21:00 Active Medications Enoxaparin Sodium (Lovenox -) 40 mg SQ DAILY [facility] Last Admin: 12/02/17 10:35 Dose: 40 mg Ceftriaxone Sodium 1 gm/ (Dextrose) 50 mls @ 100 mls/hr IVPB DAILY [facility] Last Admin: 12/02/17 10:34 Dose: 100 mls/hr Azithromycin 500 mg/ Dextrose 250 mls @ 250 mls/hr IVPB DAILY [facility] Last Admin: 12/02/17 12:23 Dose: 250 mls/hr Insulin Aspart (Novolog Vial Sliding Scale -) 1 vial SQ ACHS [facility]; Protocol Last Admin: 12/02/17 12:25 Dose: 1 unit Methylprednisolone Sodium Succinate (Solu-Medrol -) 40 mg IVPUSH Q8H-IV [facility] Last Admin: 12/02/17 10:34 Dose: 40 mg Ramipril (Altace -) 5 mg PO DAILY [facility] Last Admin: 12/02/17 10:34 Dose: 5 mg Spironolactone (Aldactone -) 25 mg PO DAILY [facility] Last Admin: 12/02/17 10:34 Dose: 25 mg Thyroid ([place] Thyroid -) 30 mg PO DAILY [facility] Last Admin: 12/02/17 10:35 Dose: 30 mg HEENT: No Jaundice, (-) Pallor Neck: Supple, nontender. No palpable adenopathy or thyromegaly. No JVD Chest: bibasilar faint crackles, no wheeze Heart: Regular. No S3, rub or murmur Abdomen: NT, ND, (+) BS Ext: Peripheral pulses intact. No leg edema. Skin: Warm and dry. No petechiae, rash or ecchymosis. Neuro: Alert. On-focal Laboratory Results - last 24 hr 12/01/17 12/01/17 12/02/17 10:03 22:16 05:49 Neutrophils % (Manual) 90.8 H Band Neutrophils % 3.7 Lymphocytes % (Manual) 0.9 L Monocytes % (Manual) 4 Eosinophils % (Manual) 0.0 Basophils % (Manual) 0.0 Myelocytes % (Man) 0 Promyelocytes % (Man) 0 Blast Cells % (Manual) 0 Metamyelocytes 1 Hypochromia 0 Platelet Estimate Decreased Polychromasia 0 Poikilocytosis 0 Anisocytosis 2+ Microcytosis 2+ Macrocytosis 0 ESR POC Glucometer 143 130 Hemoglobin A1c % 12/02/17 12/02/17 06:20 06:20 Neutrophils % (Manual) Band Neutrophils % Lymphocytes % (Manual) Monocytes % (Manual) Eosinophils % (Manual) Basophils % (Manual) Myelocytes % (Man) Promyelocytes % (Man) Blast Cells % (Manual) Metamyelocytes Hypochromia Platelet Estimate Polychromasia Poikilocytosis Anisocytosis Microcytosis Macrocytosis ESR 77 H POC Glucometer Hemoglobin A1c % 5.7 Problem List - Problems (1) Bronchiectasis Code(s): J47.9 - BRONCHIECTASIS, UNCOMPLICATED (2) ILD (interstitial lung disease) Code(s): J84.9 - INTERSTITIAL PULMONARY DISEASE, UNSPECIFIED (3) Lung nodules Code(s): R91.8 - OTHER NONSPECIFIC ABNORMAL FINDING OF LUNG FIELD (4) HTN (hypertension) Code(s): I10 - ESSENTIAL (PRIMARY) HYPERTENSION (5) Mitral valve prolapse Code(s): I34.1 - NONRHEUMATIC MITRAL (VALVE) PROLAPSE IMP ADVANCED ILD/BRONCHIECTASIS ACUTE BRONCHITIS ,?PNEUMONIA BILATERAL PULMONARY NODULES ? INFLAMMATORY,?MALIGNANT HTN DM MVP PLAN IV STEROIDS INHALED BRONCHODILATORS O2 ABX PER ID SPUTUM C+S PFTS OUTPATIENT F/U CHEST CT [address] James
[2017-12-02 13:16] LABS: BASO % 0.2 % (0-2.0); HEMATOCRIT 41.8 % (32.4-45.2); HEMOGLOBIN 13.9 GM/dL (10.7-15.3); LYMPH % 2.9 % (8-40); MCH 31.6 pg (25.7-33.7); MCHC 33.3 g/dl (32.0-36.0); MEAN CELL VOLUME 94.9 fl (80-96); MEAN PLT VOLUME 9.1 fl (7.5-11.1); NEUT % 93.9 % (42.8-82.8); PLATELET COUNT 196 K/MM3 (134-434); RBC 4.41 M/mm3 (3.60-5.2); RDW 13.8 % (11.6-15.6); WHITE BLOOD COUNT 26.8 K/mm3 (4.0-10.0)
--- NOTE | 2017-12-02 13:26 | PN ---
Teaching Attending Note Name of Resident: Farzana Cervantes ATTENDING PHYSICIAN STATEMENT I saw and evaluated the patient. I reviewed the resident's note and discussed the case with the resident. I agree with the resident's findings and plan as documented with exceptions. SUBJECTIVE: Patient seen and examined. Breathing continues to improve,voice better. No new complaints. OBJECTIVE: Vital Signs Period Temp Pulse Resp BP Sys/Calderón Pulse Ox Last 24 Hr 97.5 F-97.6 F 60-87 18-20 116-134/57-73 94 Intake & Output 11/29/17 11/30/17 12/01/17 12/02/17 23:59 23:59 23:59 23:59 Intake Total 580 320 Balance 580 320 Weight 150 lb 136 lb 1.6 oz General: sitting in bed, improved, Chest: Improved air entry, no wheezing appreciated Abdomen:Soft, NT Extremities: no edema Active Medications Enoxaparin Sodium (Lovenox -) 40 mg SQ DAILY [facility] Last Admin: 12/02/17 10:35 Dose: 40 mg Ceftriaxone Sodium 1 gm/ (Dextrose) 50 mls @ 100 mls/hr IVPB DAILY [facility] Last Admin: 12/02/17 10:34 Dose: 100 mls/hr Azithromycin 500 mg/ Dextrose 250 mls @ 250 mls/hr IVPB DAILY [facility] Last Admin: 12/02/17 12:23 Dose: 250 mls/hr Insulin Aspart (Novolog Vial Sliding Scale -) 1 vial SQ ACHS [facility]; Protocol Last Admin: 12/02/17 12:25 Dose: 1 unit Methylprednisolone Sodium Succinate (Solu-Medrol -) 40 mg IVPUSH Q8H-IV [facility] Last Admin: 12/02/17 10:34 Dose: 40 mg Ramipril (Altace -) 5 mg PO DAILY [facility] Last Admin: 12/02/17 10:34 Dose: 5 mg Spironolactone (Aldactone -) 25 mg PO DAILY [facility] Last Admin: 12/02/17 10:34 Dose: 25 mg Thyroid ([place] Thyroid -) 30 mg PO DAILY [facility] Last Admin: 12/02/17 10:35 Dose: 30 mg Laboratory Results - last 24 hr 12/01/17 12/02/17 12/02/17 22:16 05:49 06:20 WBC RBC Hgb Hct MCV MCH MCHC RDW Plt Count MPV Absolute Neuts (auto) Neutrophils % Lymphocytes % Monocytes % Eosinophils % Basophils % Nucleated RBC % ESR 77 H POC Glucometer 143 130 Hemoglobin A1c % 12/02/17 12/02/17 12/02/17 06:20 12:21 12:58 WBC 26.8 H RBC 4.41 Hgb 13.9 Hct 41.8 MCV 94.9 MCH 31.6 MCHC 33.3 RDW 13.8 Plt Count 196 D MPV 9.1 Absolute Neuts (auto) 25.2 Neutrophils % 93.9 H Lymphocytes % 2.9 L Monocytes % 3.0 L Eosinophils % 0.0 Basophils % 0.2 Nucleated RBC % 0 ESR POC Glucometer 155 Hemoglobin A1c % 5.7 ASSESSMENT AND PLAN: 87 yof with PMHx of HTN, DM, MVP, cardiomegaly, hypothyroidism admitted with dyspnea, found with interstitial lung disease, lung nodules and possible CAP vs acute bronchitis. -Possible CAP vs acute bronchitis -INtersititial lung disease -Lung nodules -Hyperglycemia, ?steroid induced -Leucocytosis, worsened from ?steroid induced margination as clinically continues to improve -HTN -DM -MVP -Cardiomegaly -Hypothyroidism Plan: ID/pulmonary input noted. Ceftriaxone/azithromycin day 2. Legionella studies neg. Sputum cultures if available. Taper steroids, standing and prn nebs. Pulmonary input noted. A1cx 5.7, steroid induced hyperglycemia, ISS and monitor for now. WBC rising, however clinically continues to improve, ?steroid induced margination, monitor for now. Trend CBC Continue home ACEi/spironolactone DVTPPX with lovenox DIspo planning pending clinical improvement. Plan discussed with patient in detail, all questions answered.
[2017-12-02 14:20] LABS: PLATELET ESTIMATE ADEQUATE
--- NOTE | 2017-12-02 19:40 | PN ---
Physical Exam: SUBJECTIVE: Patient seen and examined this morning at bedside. Patient says she feels much better. Her Hoarseness is reduced and she feels she has more energy. Denies fevers, chills, chest pain, nausea, vomiting, diarrhea. OBJECTIVE: Vital Signs Period Temp Pulse Resp BP Sys/Calderón Pulse Ox Last 24 Hr 97.5 F-97.7 F 60-90 18-20 117-134/57-73 94-94 GENERAL: The patient is awake, alert, and fully oriented, in no acute distress. THROAT: Oropharynx clear without exudates, Nonerythematous, with moist mucous membranes. LUNGS: Breath sounds equal, clear to auscultation bilaterally, no wheezes HEART: Regular rate and rhythm, S1, S2 without murmur, rub or gallop. ABDOMEN: Soft, nontender, nondistended, normoactive bowel sounds Laboratory Results - last 24 hr 12/01/17 12/02/17 12/02/17 22:16 05:49 06:20 WBC RBC Hgb Hct MCV MCH MCHC RDW Plt Count MPV Absolute Neuts (auto) Total Counted Neutrophils % Neutrophils % (Manual) Band Neutrophils % Lymphocytes % Lymphocytes % (Manual) Monocytes % Monocytes % (Manual) Eosinophils % Basophils % Nucleated RBC % Platelet Estimate Platelet Comment ESR 77 H POC Glucometer 143 130 Hemoglobin A1c % 12/02/17 12/02/17 12/02/17 06:20 12:21 12:58 WBC 26.8 H RBC 4.41 Hgb 13.9 Hct 41.8 MCV 94.9 MCH 31.6 MCHC 33.3 RDW 13.8 Plt Count 196 D MPV 9.1 Absolute Neuts (auto) 25.2 Total Counted 100 Neutrophils % 93.9 H Neutrophils % (Manual) 91.0 H Band Neutrophils % 1.0 Lymphocytes % 2.9 L Lymphocytes % (Manual) 4.0 L D Monocytes % 3.0 L Monocytes % (Manual) 4 Eosinophils % 0.0 Basophils % 0.2 Nucleated RBC % 0 Platelet Estimate Adequate Platelet Comment No clumping noted ESR POC Glucometer 155 Hemoglobin A1c % 5.7 12/02/17 17:25 WBC RBC Hgb Hct MCV MCH MCHC RDW Plt Count MPV Absolute Neuts (auto) Total Counted Neutrophils % Neutrophils % (Manual) Band Neutrophils % Lymphocytes % Lymphocytes % (Manual) Monocytes % Monocytes % (Manual) Eosinophils % Basophils % Nucleated RBC % Platelet Estimate Platelet Comment ESR POC Glucometer 146 Hemoglobin A1c % Active Medications Enoxaparin Sodium (Lovenox -) 40 mg SQ DAILY [facility] Last Admin: 12/02/17 10:35 Dose: 40 mg Ceftriaxone Sodium 1 gm/ (Dextrose) 50 mls @ 100 mls/hr IVPB DAILY [facility] Last Admin: 12/02/17 10:34 Dose: 100 mls/hr Azithromycin 500 mg/ Dextrose 250 mls @ 250 mls/hr IVPB DAILY [facility] Last Admin: 12/02/17 12:23 Dose: 250 mls/hr Insulin Aspart (Novolog Vial Sliding Scale -) 1 vial SQ ACHS [facility]; Protocol Last Admin: 12/02/17 17:26 Dose: Not Given Methylprednisolone Sodium Succinate (Solu-Medrol -) 40 mg IVPUSH Q8H-IV [facility] Last Admin: 12/02/17 17:26 Dose: 40 mg Ramipril (Altace -) 5 mg PO DAILY [facility] Last Admin: 12/02/17 10:34 Dose: 5 mg Spironolactone (Aldactone -) 25 mg PO DAILY [facility] Last Admin: 12/02/17 10:34 Dose: 25 mg Thyroid ([place] Thyroid -) 30 mg PO DAILY [facility] Last Admin: 12/02/17 10:35 Dose: 30 mg ASSESSMENT/PLAN: 87 y/o female w/ PMH HTN, DM, MVP, cardiomegaly, hypothyroidism presents with difficulty breathing and non productive cough for past 1 week. 1. Bronchitis vs. CAP - CT chest: Extensive chronic interstitial lung disease with no definite evidence of acute pathology within the chest. Bilateral pulmonary nodules - WBC increased to 26.8, possibly due to steroid use - Trend WBC - Urine Legionella antigen and Strep Penumo Antigen: Negative - Continue Ceftriaxone and Azithromycin (started in ED on 12/01/17) - Taper Solu-Medrol 40 mg IVPUSH Q8H-IV [facility] - Blood culture pending - Will order sputum cultures - ID (Dr. Hamlin) Consult: Agree with nanette/young, legionella urinary antigen, esr, estephania/rf - Pulmonology (Dr. Anthony) Consult: IV STEROIDS, INHALED BRONCHODILATORS, O2, ABX PER ID, SPUTUM C+S, PFTS OUTPATIENT, F/U CHEST CT 3 MONTHS 2. Pulmonary nodules - ?Malignancy - Pulmonology (Dr. Anthony) Consult: F/U CHEST CT 3 MONTHS 3. Elevated BNP 2/2 ?CHF - Echo: LV Systolic function normal, impaired LV Function, Trace to mild MR, Mild TR, Mild AR, Mild PV Regurg 4. Hyperglycemia - Possibly due to steroid use - ISS, BGM ACHS - Hgb A1c: 5.7% 5. HTN - Controlled - Continue Ramipril 5 mg PO DAILY - Continue Spironolactone 25 mg PO DAILY 6. Hypothyroidism - Continue [place] Thyroid 30 mg PO DAILY [facility] 7. FEN - No IV fluids at this time - No electrolyte repletion - DM diet 8. PPx - Lovenox 40mg subq [id number] Visit type - Emergency Visit Emergency Visit: No - New Patient This patient is new to me today: No - Critical Care Critical Care patient: No
[2017-12-02] MEDS ORDERED: INSULIN (NOVOLOG) ASPART 100 UNITS/ML 10ML VIAL ONE (21:31)
[2017-12-03] MEDS: methylPREDNISolone NA SUCC 40 MG/1 ML VIAL IVPUSH SCH ×2 (01:59→11:33)
[2017-12-03] MEDS: INSULIN SLIDING SCALE (NOVOLOG) 1 VIAL SQ SCH ×4 (06:39→22:34)
--- NOTE | 2017-12-03 09:49 | PN ---
Progress Note, Physician Chief Complaint: ID Ceftriaxone Azithromycin Steroids Appears comfortable - Current Medication List Current Medications: Active Medications Enoxaparin Sodium (Lovenox -) 40 mg SQ DAILY [facility] Last Admin: 12/02/17 10:35 Dose: 40 mg Ceftriaxone Sodium 1 gm/ (Dextrose) 50 mls @ 100 mls/hr IVPB DAILY [facility] Last Admin: 12/02/17 10:34 Dose: 100 mls/hr Azithromycin 500 mg/ Dextrose 250 mls @ 250 mls/hr IVPB DAILY [facility] Last Admin: 12/02/17 12:23 Dose: 250 mls/hr Insulin Aspart (Novolog Vial Sliding Scale -) 1 vial SQ ACHS [facility]; Protocol Last Admin: 12/03/17 06:39 Dose: Not Given Methylprednisolone Sodium Succinate (Solu-Medrol -) 40 mg IVPUSH Q8H-IV [facility] Last Admin: 12/03/17 01:59 Dose: 40 mg Ramipril (Altace -) 5 mg PO DAILY [facility] Last Admin: 12/02/17 10:34 Dose: 5 mg Spironolactone (Aldactone -) 25 mg PO DAILY [facility] Last Admin: 12/02/17 10:34 Dose: 25 mg Thyroid ([place] Thyroid -) 30 mg PO DAILY [facility] Last Admin: 12/02/17 10:35 Dose: 30 mg - Objective Vital Signs: Vital Signs Temperature 97.8 F 12/03/17 06:45 Pulse Rate 66 12/03/17 06:45 Respiratory Rate 18 12/03/17 06:45 Blood Pressure 143/79 12/03/17 06:45 O2 Sat by Pulse Oximetry (%) 94 L 12/02/17 21:00 Labs: CBC, BMP 12/02/17 12:58 12/01/17 10:03 INR, PTT INR 1.10 (0.82-1.09) 11/30/17 21:56 Assessment/Plan Microbiology 12/01/17 10:15 Urine For Antigen Detection Legionella Antigen - Final 12/01/17 10:15 Urine For Antigen Detection Streptococcus pneumoniae Antigen (M - Final 11/30/17 21:57 Blood - Peripheral Venous Blood Culture - Preliminary NO GROWTH OBTAINED AFTER 48 HOURS, INCUBATION TO CONTINUE FOR 3 DAYS. 11/30/17 21:45 Blood - Peripheral Venous Blood Culture - Preliminary NO GROWTH OBTAINED AFTER 48 HOURS, INCUBATION TO CONTINUE FOR 3 DAYS. Laboratory Tests 12/02/17 12:58 WBC 26.8 H Hgb 13.9 Plt Count 196 D Assessment Advanced bronchiectasis with ILD exacerbation Plan Continue Ceftriaxone Stop Azithromycin Consider po antibiotic in another day Savanna HURLEY
[2017-12-03] MEDS ORDERED: DEXTROSE 5%-WATER - 50 ML IVPB ONE (11:26)
[2017-12-03] MEDS ORDERED: PT OWN MED DRAWER 7, Y5N ONE (11:26)
[2017-12-03] MEDS ORDERED: cefTRIAXone SODIUM 1 GM VIAL ONE (11:26)
[2017-12-03 11:27] LABS: BASO % 0.2 % (0-2.0); HEMATOCRIT 43.5 % (32.4-45.2); HEMOGLOBIN 14.5 GM/dL (10.7-15.3); LYMPH % 3.1 % (8-40); MCH 31.6 pg (25.7-33.7); MCHC 33.4 g/dl (32.0-36.0); MEAN CELL VOLUME 94.7 fl (80-96); MEAN PLT VOLUME 8.6 fl (7.5-11.1); MONO % 3.7 % (3.8-10.2); PLATELET COUNT 215 K/MM3 (134-434); RBC 4.59 M/mm3 (3.60-5.2); RDW 13.6 % (11.6-15.6); WHITE BLOOD COUNT 22.6 K/mm3 (4.0-10.0)
[2017-12-03] MEDS: ENOXAPARIN NA (PORCINE) 40 MG/0.4 ML DISP.SYRIN SQ SCH (11:32)
[2017-12-03] MEDS: THYROID 30 MG TABLET PO SCH (11:32)
[2017-12-03] MEDS: RAMIPRIL 5 MG CAPSULE (FP) PO SCH (11:32)
[2017-12-03] MEDS: SPIRONOLACTONE 25 MG TABLET (FP) PO SCH (11:32)
[2017-12-03] MEDS: CEFTRIAXONE 1 GM in DEXTROSE 5%-WATER - 50 ML IVPB SCH (11:33)
--- NOTE | 2017-12-03 12:44 | PN ---
Progress Note (short form) - Note Progress Note: NAD in bed. Some dry cough. No hemoptysis. No CP. Intake & Output 11/30/17 12/01/17 12/02/17 12/03/17 23:59 23:59 23:59 23:59 Intake Total 580 820 265 Balance 580 820 265 Weight 150 lb 136 lb 1.6 oz Last Vital Signs Temp Pulse Resp BP Pulse Ox 97.8 F 66 18 143/79 94 L 12/03/17 06:45 12/03/17 06:45 12/03/17 06:45 12/03/17 06:45 12/02/17 21:00 Active Medications Enoxaparin Sodium (Lovenox -) 40 mg SQ DAILY [facility] Last Admin: 12/03/17 11:32 Dose: 40 mg Ceftriaxone Sodium 1 gm/ (Dextrose) 50 mls @ 100 mls/hr IVPB DAILY [facility] Last Admin: 12/03/17 11:33 Dose: 100 mls/hr Insulin Aspart (Novolog Vial Sliding Scale -) 1 vial SQ ACHS [facility]; Protocol Last Admin: 12/03/17 12:36 Dose: Not Given Methylprednisolone Sodium Succinate (Solu-Medrol -) 40 mg IVPUSH Q8H-IV [facility] Last Admin: 12/03/17 11:33 Dose: 40 mg Ramipril (Altace -) 5 mg PO DAILY [facility] Last Admin: 12/03/17 11:32 Dose: 5 mg Spironolactone (Aldactone -) 25 mg PO DAILY [facility] Last Admin: 12/03/17 11:32 Dose: 25 mg Thyroid ([place] Thyroid -) 30 mg PO DAILY [facility] Last Admin: 12/03/17 11:32 Dose: 30 mg HEENT: No Jaundice, (-) Pallor Neck: Supple, nontender. No palpable adenopathy or thyromegaly. No JVD Chest: bibasilar faint crackles, no wheeze Heart: Regular. No S3, rub or murmur Abdomen: NT, ND, (+) BS Ext: Peripheral pulses intact. No leg edema. Skin: Warm and dry. No petechiae, rash or ecchymosis. Neuro: Alert. On-focal Laboratory Results - last 24 hr 12/02/17 12/02/17 12/02/17 12:21 12:58 17:25 WBC 26.8 H RBC 4.41 Hgb 13.9 Hct 41.8 MCV 94.9 MCH 31.6 MCHC 33.3 RDW 13.8 Plt Count 196 D MPV 9.1 Absolute Neuts (auto) 25.2 Total Counted 100 Neutrophils % 93.9 H Neutrophils % (Manual) 91.0 H Band Neutrophils % 1.0 Lymphocytes % 2.9 L Lymphocytes % (Manual) 4.0 L D Monocytes % 3.0 L Monocytes % (Manual) 4 Eosinophils % 0.0 Basophils % 0.2 Nucleated RBC % 0 Platelet Estimate Adequate Platelet Comment No clumping noted POC Glucometer 155 146 12/02/17 12/03/17 12/03/17 21:24 06:09 10:00 WBC 22.6 H RBC 4.59 Hgb 14.5 Hct 43.5 MCV 94.7 MCH 31.6 MCHC 33.4 RDW 13.6 Plt Count 215 MPV 8.6 Absolute Neuts (auto) 21.1 Total Counted Neutrophils % 93.0 H Neutrophils % (Manual) Band Neutrophils % Lymphocytes % 3.1 L Lymphocytes % (Manual) Monocytes % 3.7 L Monocytes % (Manual) Eosinophils % 0.0 Basophils % 0.2 Nucleated RBC % 0 Platelet Estimate Platelet Comment POC Glucometer 191 124 Problem List - Problems (1) Bronchiectasis Code(s): J47.9 - BRONCHIECTASIS, UNCOMPLICATED (2) ILD (interstitial lung disease) Code(s): J84.9 - INTERSTITIAL PULMONARY DISEASE, UNSPECIFIED (3) Lung nodules Code(s): R91.8 - OTHER NONSPECIFIC ABNORMAL FINDING OF LUNG FIELD (4) HTN (hypertension) Code(s): I10 - ESSENTIAL (PRIMARY) HYPERTENSION (5) Mitral valve prolapse Code(s): I34.1 - NONRHEUMATIC MITRAL (VALVE) PROLAPSE IMP ADVANCED ILD/BRONCHIECTASIS ACUTE BRONCHITIS ,?PNEUMONIA BILATERAL PULMONARY NODULES ? INFLAMMATORY,?MALIGNANT HTN DM MVP PLAN DECREASE IV STEROIDS INHALED BRONCHODILATORS O2 ABX PER ID PFTS OUTPATIENT F/U CHEST CT [address] James
[2017-12-03] MEDS ORDERED: methylPREDNISolone NA SUCC 40 MG/1 ML VIAL IVPUSH SCH ×2 (12:45→14:13)
[2017-12-03 13:26] LABS: PLATELET ESTIMATE ADEQUATE
--- NOTE | 2017-12-03 15:25 | PN ---
Physical Exam: SUBJECTIVE: Patient seen and examined, breathing/cough continue to improve, no new complaints, overall feels better. OBJECTIVE: Vital Signs Period Temp Pulse Resp BP Sys/Calderón Pulse Ox Last 24 Hr 97.8 F-97.8 F 66-77 18-20 105-143/64-79 94 GENERAL:sitting in bed, no tachypnea or use of acessory muscles today chest: distant breath sounds but improved air entry, fine basilar rales Abdomen:Soft, NT, nD Extremities: no edema Laboratory Results - last 24 hr 12/02/17 12/02/17 12/03/17 17:25 21:24 06:09 WBC RBC Hgb Hct MCV MCH MCHC RDW Plt Count MPV Absolute Neuts (auto) Neutrophils % Neutrophils % (Manual) Band Neutrophils % Lymphocytes % Lymphocytes % (Manual) Monocytes % Monocytes % (Manual) Eosinophils % Eosinophils % (Manual) Basophils % Nucleated RBC % Platelet Estimate Platelet Comment POC Glucometer 146 191 124 12/03/17 12/03/17 10:00 12:36 WBC 22.6 H RBC 4.59 Hgb 14.5 Hct 43.5 MCV 94.7 MCH 31.6 MCHC 33.4 RDW 13.6 Plt Count 215 MPV 8.6 Absolute Neuts (auto) 21.1 Neutrophils % 93.0 H Neutrophils % (Manual) 90.0 H Band Neutrophils % 1.0 Lymphocytes % 3.1 L Lymphocytes % (Manual) 6.0 L D Monocytes % 3.7 L Monocytes % (Manual) 2 L Eosinophils % 0.0 Eosinophils % (Manual) 1.0 D Basophils % 0.2 Nucleated RBC % 0 Platelet Estimate Adequate Platelet Comment No clumping noted POC Glucometer 120 Active Medications Generic Name Dose Route Start Last Admin Trade Name Cruzq PRN Reason Stop Dose Admin Enoxaparin Sodium 40 mg 12/01/17 10:00 12/03/17 11:32 Lovenox - SQ 40 mg DAILY [facility] Administration Ceftriaxone Sodium 1 gm/ 50 mls @ 100 mls/hr 12/02/17 10:00 12/03/17 11:33 Dextrose IVPB 100 mls/hr DAILY [facility] Administration Insulin Aspart 1 vial 12/01/17 22:00 12/03/17 12:36 Novolog Vial Sliding Scale - SQ Not Given ACHS [facility] Protocol Methylprednisolone Sodium Succinate 40 mg 07/08/18 14:13 Solu-Medrol - IVPUSH BID [facility] Ramipril 5 mg 12/01/17 13:34 12/03/17 11:32 Altace - PO 5 mg DAILY [facility] Administration Spironolactone 25 mg 12/01/17 10:30 12/03/17 11:32 Aldactone - PO 25 mg DAILY [facility] Administration Thyroid 30 mg 12/01/17 13:34 12/03/17 11:32 [place] Thyroid - PO 30 mg DAILY [facility] Administration ASSESSMENT/PLAN: 87 yof with PMHx of HTN, DM, MVP, cardiomegaly, hypothyroidism admitted with dyspnea, found with interstitial lung disease, lung nodules and possible CAP vs acute bronchitis. -Possible CAP vs acute bronchitis -INtersititial lung disease -Lung nodules -Hyperglycemia, ?steroid induced -Leucocytosis, worsened from ?steroid induced margination as clinically continues to improve -HTN -DM -MVP -Cardiomegaly -Hypothyroidism Plan: ID/pulmonary input noted. Ceftriaxone/azithromycin day 3. Legionella studies neg. Plan for PO abx in AM. Sputum cultures if available. Taper steroids, transition to PO prednisone in AM. standing and prn nebs. Pulmonary input noted. A1cx 5.7, steroid induced hyperglycemia, ISS and monitor for now. Anticipate will improve with taper WBC improved, likely steroid induced margination, monitor for now. Trend CBC Continue home ACEi/spironolactone DVTPPX with lovenox PT eval and home oxygen needs assessment. DIspo d/c plan in 24 hours if continues to improve, pending above. Plan discussed with patient in detail, all questions answered. Visit type - Emergency Visit Emergency Visit: Yes ED Registration Date: 12/01/17 Care time: The patient presented to the Emergency Department on the above date and was hospitalized for further evaluation of their emergent condition. - New Patient This patient is new to me today: No - Critical Care Critical Care patient: No - Discharge Referral Referred to [facility] Med P.C.: No
[2017-12-04] MEDS: INSULIN SLIDING SCALE (NOVOLOG) 1 VIAL SQ SCH ×3 (06:38→16:20)
[2017-12-04 06:41] LABS: BASO % 0.1 % (0-2.0); HEMATOCRIT 41.7 % (32.4-45.2); LYMPH % 6.5 % (8-40); MCHC 33.5 g/dl (32.0-36.0); MEAN CELL VOLUME 95.7 fl (80-96); MEAN PLT VOLUME 8.6 fl (7.5-11.1); MONO % 3.7 % (3.8-10.2); NEUT % 89.7 % (42.8-82.8); PLATELET COUNT 207 K/MM3 (134-434); RBC 4.36 M/mm3 (3.60-5.2); RDW 13.6 % (11.6-15.6); WHITE BLOOD COUNT 16.6 K/mm3 (4.0-10.0)
[2017-12-04] MEDS ORDERED: INSULIN (NOVOLOG) ASPART 100 UNITS/ML 10ML VIAL ONE (07:48)
[2017-12-04] MEDS ORDERED: PT OWN MED DRAWER 7, Y5N ONE ×2 (07:49→09:33)
--- NOTE | 2017-12-04 08:15 | PN ---
Teaching Attending Note Name of Resident: Farzana Cervantes ATTENDING PHYSICIAN STATEMENT I saw and evaluated the patient. I reviewed the resident's note and discussed the case with the resident. I agree with the resident's findings and plan as documented with exceptions as below. SUBJECTIVE: Patient seen and examined. Breathing improved, no concerns. OBJECTIVE: Vital Signs Period Temp Pulse Resp BP Sys/Calderón Pulse Ox Last 24 Hr 97.5 F-98.0 F 63-119 18-22 125-147/75-79 93-94 Intake & Output 12/01/17 12/02/17 12/03/17 12/04/17 23:59 23:59 23:59 23:59 Intake Total 580 820 925 10 Balance 580 820 925 10 Weight 136 lb 1.6 oz General: sitting in bed, no acute distress Chest: fine bilateral rales, improved exam and air entry Abdomen:soft, NT, ND Extremities: no edema Active Medications Enoxaparin Sodium (Lovenox -) 40 mg SQ DAILY [facility] Last Admin: 12/03/17 11:32 Dose: 40 mg Ceftriaxone Sodium 1 gm/ (Dextrose) 50 mls @ 100 mls/hr IVPB DAILY [facility] Last Admin: 12/03/17 11:33 Dose: 100 mls/hr Insulin Aspart (Novolog Vial Sliding Scale -) 1 vial SQ ACHS [facility]; Protocol Last Admin: 12/04/17 06:38 Dose: Not Given Prednisone (Deltasone -) 60 mg PO DAILY [facility] Ramipril (Altace -) 5 mg PO DAILY [facility] Last Admin: 12/03/17 11:32 Dose: 5 mg Spironolactone (Aldactone -) 25 mg PO DAILY [facility] Last Admin: 12/03/17 11:32 Dose: 25 mg Thyroid ([place] Thyroid -) 30 mg PO DAILY [facility] Last Admin: 12/03/17 11:32 Dose: 30 mg Laboratory Results - last 24 hr 12/02/17 12/03/17 12/03/17 06:20 10:00 12:36 WBC 22.6 H RBC 4.59 Hgb 14.5 Hct 43.5 MCV 94.7 MCH 31.6 MCHC 33.4 RDW 13.6 Plt Count 215 MPV 8.6 Absolute Neuts (auto) 21.1 Neutrophils % 93.0 H Neutrophils % (Manual) 90.0 H Band Neutrophils % 1.0 Lymphocytes % 3.1 L Lymphocytes % (Manual) 6.0 L D Monocytes % 3.7 L Monocytes % (Manual) 2 L Eosinophils % 0.0 Eosinophils % (Manual) 1.0 D Basophils % 0.2 Nucleated RBC % 0 Platelet Estimate Adequate Platelet Comment No clumping noted POC Glucometer 120 Rheumatoid Arth [employer] 27.1 H 12/03/17 12/03/17 12/04/17 17:29 22:33 05:55 WBC 16.6 H RBC 4.36 Hgb 14.0 Hct 41.7 MCV 95.7 MCH 32.0 MCHC 33.5 RDW 13.6 Plt Count 207 MPV 8.6 Absolute Neuts (auto) 14.9 Neutrophils % 89.7 H Neutrophils % (Manual) Band Neutrophils % Lymphocytes % 6.5 L D Lymphocytes % (Manual) Monocytes % 3.7 L Monocytes % (Manual) Eosinophils % 0.0 Eosinophils % (Manual) Basophils % 0.1 Nucleated RBC % 0 Platelet Estimate Platelet Comment POC Glucometer 131 144 Rheumatoid Arth [employer] 12/04/17 06:37 WBC RBC Hgb Hct MCV MCH MCHC RDW Plt Count MPV Absolute Neuts (auto) Neutrophils % Neutrophils % (Manual) Band Neutrophils % Lymphocytes % Lymphocytes % (Manual) Monocytes % Monocytes % (Manual) Eosinophils % Eosinophils % (Manual) Basophils % Nucleated RBC % Platelet Estimate Platelet Comment POC Glucometer 109 Rheumatoid Arth [employer] Microbiology 11/30/17 21:45 Blood - Peripheral Venous Blood Culture - Preliminary NO GROWTH OBTAINED AFTER 72 HOURS, INCUBATION TO CONTINUE FOR 2 DAYS. 11/30/17 21:57 Blood - Peripheral Venous Blood Culture - Preliminary NO GROWTH OBTAINED AFTER 72 HOURS, INCUBATION TO CONTINUE FOR 2 DAYS. 12/01/17 10:15 Urine For Antigen Detection Legionella Antigen - Final 12/01/17 10:15 Urine For Antigen Detection Streptococcus pneumoniae Antigen (M - Final ASSESSMENT AND PLAN: 87 yof with PMHx of HTN, DM, MVP, cardiomegaly, hypothyroidism admitted with dyspnea, found with interstitial lung disease, lung nodules and possible CAP vs acute bronchitis. -Possible CAP vs acute bronchitis -INtersititial lung disease -Lung nodules -Hyperglycemia, ?steroid induced -Leucocytosis, worsened from ?steroid induced margination as clinically continues to improve -HTN -DM -MVP -Cardiomegaly -Hypothyroidism Plan: ID/pulmonary input noted. Ceftriaxone day4, s/p 3 days of azithromycin, discussed with , oral cefuroxime for 3 days. Sputum cultures if available. PUlmonary input noted, change to PO prednisone with sloe taper and Chest CT follow up outpatient. A1cx 5.7, steroid induced hyperglycemia, ISS and monitor for now. Blood sugars good. WBC improved, likely steroid induced margination, monitor for now. Continue home ACEi/spironolactone DVTPPX with lovenox No home oxygen needs. PT eval noted. D/c home with VNS/PT today. Hospital course, plan and dc instructions discussed in detail with patient, all questions answered.
[2017-12-04] MEDS ORDERED: DEXTROSE 5%-WATER - 50 ML IVPB ONE (09:34)
[2017-12-04] MEDS ORDERED: cefTRIAXone SODIUM 1 GM VIAL ONE (09:34)
[2017-12-04] MEDS: SPIRONOLACTONE 25 MG TABLET (FP) PO SCH (09:38)
[2017-12-04] MEDS: RAMIPRIL 5 MG CAPSULE (FP) PO SCH (09:38)
[2017-12-04] MEDS: ENOXAPARIN NA (PORCINE) 40 MG/0.4 ML DISP.SYRIN SQ SCH (09:38)
[2017-12-04] MEDS: THYROID 30 MG TABLET PO SCH (09:39)
[2017-12-04] MEDS: CEFTRIAXONE 1 GM in DEXTROSE 5%-WATER - 50 ML IVPB SCH (09:39)
[2017-12-04] MEDS ORDERED: predniSONE 20 MG TABLET (UD) PO SCH (10:00)
--- NOTE | 2017-12-04 12:06 | PN ---
Progress Note, Physician History of Present Illness: pulmonary alert,feeling better,less dyspneic - Current Medication List Current Medications: Active Medications Enoxaparin Sodium (Lovenox -) 40 mg SQ DAILY [facility] Last Admin: 12/04/17 09:38 Dose: 40 mg Ceftriaxone Sodium 1 gm/ (Dextrose) 50 mls @ 100 mls/hr IVPB DAILY [facility] Last Admin: 12/04/17 09:39 Dose: 100 mls/hr Insulin Aspart (Novolog Vial Sliding Scale -) 1 vial SQ ACHS [facility]; Protocol Last Admin: 12/04/17 11:51 Dose: 1 unit Prednisone (Deltasone -) 60 mg PO DAILY [facility] Last Admin: 12/04/17 09:38 Dose: 60 mg Ramipril (Altace -) 5 mg PO DAILY [facility] Last Admin: 12/04/17 09:38 Dose: 5 mg Spironolactone (Aldactone -) 25 mg PO DAILY [facility] Last Admin: 12/04/17 09:38 Dose: 25 mg Thyroid ([place] Thyroid -) 30 mg PO DAILY [facility] Last Admin: 12/04/17 09:39 Dose: 30 mg - Objective Vital Signs: Vital Signs Temperature 97.6 F 12/04/17 10:00 Pulse Rate 96 H 12/04/17 10:00 Respiratory Rate 20 12/04/17 10:00 Blood Pressure 143/74 12/04/17 10:00 O2 Sat by Pulse Oximetry (%) 93 L 12/03/17 21:00 Constitutional: Yes: Well Nourished, Calm Eyes: Yes: WNL HENT: Yes: WNL Neck: Yes: WNL Cardiovascular: Yes: Regular Rate and Rhythm, S1, S2 Respiratory: Yes: Rales (bilateral crackles) Gastrointestinal: Yes: Normal Bowel Sounds, Soft Extremities: Yes: WNL Edema: No Labs: CBC, BMP 12/04/17 05:55 12/01/17 10:03 INR, PTT INR 1.10 (0.82-1.09) 11/30/17 21:56 Problem List - Problems (1) Bronchiectasis Code(s): J47.9 - BRONCHIECTASIS, UNCOMPLICATED (2) ILD (interstitial lung disease) Code(s): J84.9 - INTERSTITIAL PULMONARY DISEASE, UNSPECIFIED (3) Lung nodules Code(s): R91.8 - OTHER NONSPECIFIC ABNORMAL FINDING OF LUNG FIELD (4) HTN (hypertension) Code(s): I10 - ESSENTIAL (PRIMARY) HYPERTENSION (5) Mitral valve prolapse Code(s): I34.1 - NONRHEUMATIC MITRAL (VALVE) PROLAPSE Assessment/Plan IMP ADVANCED ILD/BRONCHIECTASIS ACUTE BRONCHITIS ,?PNEUMONIA BILATERAL PULMONARY NODULES ? INFLAMMATORY,?MALIGNANT HTN DM MVP PLAN PREDNISONE INHALED BRONCHODILATORS O2 ABX PER ID SPUTUM C+S PFTS OUTPATIENT F/U CHEST CT [address] BRAD[place] Problem List - Problems (1) Bronchiectasis Code(s): J47.9 - BRONCHIECTASIS, UNCOMPLICATED (2) ILD (interstitial lung disease) Code(s): J84.9 - INTERSTITIAL PULMONARY DISEASE, UNSPECIFIED (3) Lung nodules Code(s): R91.8 - OTHER NONSPECIFIC ABNORMAL FINDING OF LUNG FIELD (4) HTN (hypertension) Code(s): I10 - ESSENTIAL (PRIMARY) HYPERTENSION (5) Mitral valve prolapse Code(s): I34.1 - NONRHEUMATIC MITRAL (VALVE) PROLAPSE
--- NOTE | 2017-12-04 15:45 | DS ---
Physical Exam: SUBJECTIVE: Patient seen and examined this morning at bedside. Patient says she feels much better and her hoarseness continues to improve. Denies fevers, chills, chest pain, nausea, vomiting, diarrhea. OBJECTIVE: Vital Signs Period Temp Pulse Resp BP Sys/Calderón Pulse Ox Last 24 Hr 97.5 F-98.0 F 63-119 18-20 125-147/74-79 93-93 PHYSICAL EXAM GENERAL: The patient is awake, alert, and fully oriented, in no acute distress. THROAT: Nonerythematous oropharynx, clear without exudates, with moist mucous membranes. LUNGS: Breath sounds equal, Improved airway entry, Fine rales bilaterally HEART: Regular rate and rhythm, S1, S2 without murmur, rub or gallop. ABDOMEN: Soft, nontender, nondistended, normoactive bowel sounds LABS Laboratory Results - last 24 hr 12/02/17 12/03/17 12/03/17 06:20 17:29 22:33 WBC RBC Hgb Hct MCV MCH MCHC RDW Plt Count MPV Absolute Neuts (auto) Neutrophils % Lymphocytes % Monocytes % Eosinophils % Basophils % Nucleated RBC % POC Glucometer 131 144 Rheumatoid Arth Biomark 27.1 H 12/04/17 12/04/17 12/04/17 05:55 06:37 11:25 WBC 16.6 H RBC 4.36 Hgb 14.0 Hct 41.7 MCV 95.7 MCH 32.0 MCHC 33.5 RDW 13.6 Plt Count 207 MPV 8.6 Absolute Neuts (auto) 14.9 Neutrophils % 89.7 H Lymphocytes % 6.5 L D Monocytes % 3.7 L Eosinophils % 0.0 Basophils % 0.1 Nucleated RBC % 0 POC Glucometer 109 162 Rheumatoid Arth Biomark Microbiology 11/30/17 21:45 Blood - Peripheral Venous Blood Culture - Preliminary NO GROWTH OBTAINED AFTER 72 HOURS, INCUBATION TO CONTINUE FOR 2 DAYS. 11/30/17 21:57 Blood - Peripheral Venous Blood Culture - Preliminary NO GROWTH OBTAINED AFTER 72 HOURS, INCUBATION TO CONTINUE FOR 2 DAYS. Ambulatory Orders Ramipril 5 mg PO DAILY 08/20/14 Spironolactone [Aldactone -] 25 mg PO DAILY 08/20/14 Cyanocobalamin Vit B-12 Inj. [Vitamin B12 Injection -] 1,000 mcg IJ MONTHLY 07/ 06/18 Thyroid [[place] Thyroid] 30 mg PO DAILY 12/01/17 Cefuroxime Axetil [Ceftin -] 500 mg PO Q12H 3 Days #6 tablet 12/04/17 Pantoprazole Sodium [Protonix -] 40 mg PO DAILY #30 tablet.ec 12/04/17 predniSONE [Deltasone -] See Taper PO ASDIR #63 tab 12/04/17 Active Medications Enoxaparin Sodium (Lovenox -) 40 mg SQ DAILY [facility] Last Admin: 12/04/17 09:38 Dose: 40 mg Ceftriaxone Sodium 1 gm/ (Dextrose) 50 mls @ 100 mls/hr IVPB DAILY [facility] Last Admin: 12/04/17 09:39 Dose: 100 mls/hr Insulin Aspart (Novolog Vial Sliding Scale -) 1 vial SQ ACHS [facility]; Protocol Last Admin: 12/04/17 16:20 Dose: Not Given Prednisone (Deltasone -) 60 mg PO DAILY [facility] Last Admin: 12/04/17 09:38 Dose: 60 mg Ramipril (Altace -) 5 mg PO DAILY [facility] Last Admin: 12/04/17 09:38 Dose: 5 mg Spironolactone (Aldactone -) 25 mg PO DAILY [facility] Last Admin: 12/04/17 09:38 Dose: 25 mg Thyroid ([place] Thyroid -) 30 mg PO DAILY [facility] Last Admin: 12/04/17 09:39 Dose: 30 mg IMAGING: CT Chest: Extensive chronic interstitial lung disease with no definite evidence of acute pathology within the chest. Bilateral pulmonary nodules for which short -term CT follow-up is now recommended. Cholelithiasis. Please see above discussion. EKG: NORMAL SINUS RHYTHM, POSSIBLE LEFT ATRIAL ENLARGEMENT, LEFT AXIS DEVIATION , RIGHT BUNDLE BRANCH BLOCK, ABNORMAL ECG WHEN COMPARED WITH ECG OF 20-AUG-2014 18:46, NO SIGNIFICANT CHANGE WAS FOUND Echo: LV Systolic function is normal. The transmitral spectral doppler flow pattern is suggestive of impaired LV relaxation. There is trace to mild MR. There is mild TR. Trace to mild AR. Mild pulmonic valvular regurgitation. HOSPITAL COURSE: Date of Admission:12/01/17 Date of Discharge: 12/04/17 Prehospital course as per Dr. Wellington Love 87 y/o female with PMH HTN, DM, MVP, cardiomegaly, hypothyroidism presents with c/o difficulty breathing for the past week. Admits to gradual onset with associated non productive cough. States she feels mucus in the chest which makes it difficult to breathe, but cannot expel much mucus. Admits to chest tightness and pain with coughing. Denies past occurrence of similar symptoms. Went to [facility] urgent care today, and was told to come to ED. Denies: fevers, chills, palpitations, nausea, vomiting, diarrhea, constipation, hematuria, hematochezia, falls, LOC. Hospital course Patient was admitted on 12/01 for Possible CAP VS Acute Bronchitis. Patient received on Ceftriaxone for 4 days and Azithromycin for [address] scan showed evidence of interstitial lung disease with no acute pathology with new bilateral pulmonary nodules. The patient was tested for ESR, SUNSHINE, RF. Her ESR was elevated, Rheumatoid Arthritis biomarker was elevated and her SUNSHINE Screen is pending. She received a solumederal taper and transitioned to a PO Prednisone taper. Patient is being discharged home for a chest CT in 3 months and to follow up with Pulmonology for PFTs. Patient will be receiving VNS and home health aid services. Minutes to complete discharge: 40 Discharge Summary Reason For Visit: PNEUMONIA Current Active Problems Bronchiectasis (Acute) Chest pain at rest (Acute) HTN (hypertension) (Acute) ILD (interstitial lung disease) (Acute) Lung nodules (Acute) Mitral valve prolapse (Acute) Pneumonia (Acute) Condition: Good - Instructions Diet, Activity, Other Instructions: Take ceftin 500 mg orally twice daily for 3 days starting tomorrow. Prednisone taper as follows: 60 mg daily for 3 days starting tomorrow (12/04 12/05, 12/06) 50 mg daily for 3 days (12/07, 12/08, 12/09) 40 mg daily for 3 days (12/10, 12/11, 12/12) 30 mg daily for 3 days (12/13, 12/14, 12/15) 20 mg daily for 3 days (12/16, 12/17, 12/18) 10 mg daily for 3 days (12/19, 12/20, 12/21), then off. Advise to take acid reflux medication Protonix as instructed while you are on steroids. Follow up with PCP In 1 week. Follow up with lung doctor Dr. Anthony in 1-2 weeks. You were found with lung nodules which will need close monitoring with your lung doctor and CT chest in 2-3 months. Call 911 or come to ED if any fevers, chills, trouble breathing, or any new concerns noted. Referrals: Marvin Anthony MD [Staff Physician] - 1 Week Disposition: VNS/HOME HEALTH CARE - Home Medications Comprehensive Discharge Medication List: Ambulatory Orders Ramipril 5 mg PO DAILY 08/20/14 Spironolactone [Aldactone -] 25 mg PO DAILY 08/20/14 Cyanocobalamin Vit B-12 Inj. [Vitamin B12 Injection -] 1,000 mcg IJ MONTHLY 11/13 Thyroid [[place] Thyroid] 30 mg PO DAILY 12/01/17 Cefuroxime Axetil [Ceftin -] 500 mg PO Q12H 3 Days #6 tablet 12/04/17 Pantoprazole Sodium [Protonix -] 40 mg PO DAILY #30 tablet.ec 12/04/17 predniSONE [Deltasone -] See Taper PO ASDIR #63 tab 12/04/17 This patient is new to me today: No Emergency Visit: No Critical Care patient: No - Discharge Referral Referred to [facility] No
[2017-12-04 15:47] VITALS: BP 124/67; PULSE 67; TEMP 98
== END 2017-12-04 19:19 | disposition home health service (06) | DRG 196 ==
LOC: JER 21:02 → JERBED 12-01 00:18 → UNDOADMIN 12-01 03:48 → JERBED 12-01 03:48 → J5S 12-01 05:19
PROVIDERS: ADMIT Internal Medicine; ATTEND Hospitalist
DX: J84.9 Interstitial pulmonary disease, unspecified (principal); J18.9 Pneumonia, unspecified organism; R07.9 Chest pain, unspecified; I10 Essential (primary) hypertension; I34.1 Nonrheumatic mitral (valve) prolapse; D72.829 Elevated white blood cell count, unspecified; E03.9 Hypothyroidism, unspecified; I51.7 Cardiomegaly; J47.9 Bronchiectasis, uncomplicated; J20.9 Acute bronchitis, unspecified; R91.8 Other nonspecific abnormal finding of lung field; E11.65 Type 2 diabetes mellitus with hyperglycemia
CPT/HCPCS: 36415; 71250-TC; 80048; 80053; 82550; 82962; 83036; 83735; 83880; 84100; 84484; 85025; 85610; 85651; 86038; 86431; 87040; 87899; 90670; 93005; 93010; 93306-TC; 94761; 97116-GP; 97161-GP; 99284-25

== ENCOUNTER 2018-04-27 14:22 | Inpatient (IN) | payer OTHER ==
--- NOTE | 2018-04-27 14:33 | PDOC ---
History of Present Illness - General Chief Complaint: Injury Stated Complaint: Shoulder Dislocation/FALL Time Seen by Provider: 04/27/18 14:24 - History of Present Illness Initial Comments: 87 y/o female with PMH HTN, DM, MVP, cardiomegaly, hypothyroidism presents with pain to her left shoulder and left elbow after a fall onto her elbow after tripping over her shoes. Patient states that she was walking then tripped over her shoe and fell to her side onto her elbow with immediate pain to her left elbow and left shoulder and difficulty with movement. No bleeding or skin breakage. Denies any head trauma, LOC, nausea, vomiting, lightheadedness, chest pain, or other symptoms. 04/27/18 14:41 Past History - Past Medical History Allergies/Adverse Reactions: Allergies Allergy/AdvReac Type Severity Reaction Status Date / Time epinephrine AdvReac Elevated Verified 04/27/18 14:39 Blood Pressure Home Medications: Ambulatory Orders Ramipril 2.5 mg PO DAILY 08/20/14 Spironolactone [Aldactone -] 25 mg PO DAILY 08/20/14 Thyroid [[place] Thyroid] 30 mg PO DAILY 12/01/17 Cancer: Yes (skin cancer) COPD: No Diabetes: Yes (hyopglycemia) HTN: Yes Thyroid Disease: Yes - Surgical History Appendectomy: Yes - Suicide/Smoking/Psychosocial Hx Smoking Status: No Smoking History: Never smoked Number of Cigarettes Smoked Daily: 0 Hx Alcohol Use: No Drug/Substance Use Hx: No Substance Use Type: None Review of Systems - Review of Systems Constitutional: No: Chills, Diaphoresis, Fever HEENTM: No: Eye Pain, Blurred Vision, Tearing Respiratory: No: Cough, Orthopnea, Shortness of Breath Cardiac (ROS): No: Chest Pain, Edema ABD/GI: No: Diarrhea, Nausea, Vomiting : No: Burning, Dysuria, Discharge Musculoskeletal: Yes: Joint Pain, Muscle Pain. No: Back Pain Integumentary: No: Bruising, Erythema, Flushing Psychiatric: No: Anxiety, Depression Hematologic/Lymphatic: No: Anemia, Blood Clots, Easy Bleeding *Physical Exam - Physical Exam General Appearance: Yes: Nourished, Appropriately Dressed, Apparent Distress, Mild Distress HEENT: positive: EOMI, OLGA, Normal ENT Inspection, Normal Voice Neck: positive: Trachea midline, Normal Thyroid, Supple. negative: Tender, Rigid Respiratory/Chest: positive: Lungs Clear, Normal Breath Sounds. negative: Chest Tender, Respiratory Distress Cardiovascular: positive: Regular Rhythm, Regular Rate Gastrointestinal/Abdominal: positive: Normal Bowel Sounds, Flat, Soft. negative : Tender Lymphatic: negative: Adenopathy, Tenderness Musculoskeletal: positive: Decreased Range of Motion. negative: Normal Inspection (left shoulder deformity, head of humerus does nto seem appropriately positioned in the acromiclavicular joint on comparison to the left side. Some distal humeral tenderenss/ proximal radial/ proximal ulnar tenderness. No wrist or distal forearm tenderenss. ) Extremity: positive: Normal Capillary Refill, Normal Inspection, Tender. negative: Normal Range of Motion, Erythema Integumentary: positive: Normal Color, Dry, Warm Neurologic: positive: Fully Oriented, Alert, Normal Mood/Affect, Normal Response , Motor Strength / ED Treatment Course - LABORATORY CBC & Chemistry Diagram: 04/27/18 16:05 04/27/18 16:05 Medical Decision Making - Medical Decision Making 88 year old with left arm deformity and pain after a fall sideways onto he elbow. XR demonstrating dislocation and fracture of proximal head. Given morphine [address] Stewart and he says he will see her. Will admit to medicine pending full preop eval and workup. 04/27/18 16:34 Spoke to ERIC Franco who will admit her under Dr. Pike. 04/27/18 17:50 *DC/Admit/Observation/Transfer Diagnosis at time of Disposition: Humeral fracture Qualifiers: Encounter type: initial encounter Humerus Location: proximal Fracture type: closed Fracture alignment: displaced Laterality: left - Discharge Dispostion Condition at time of disposition: Stable Decision to Admit order: Yes - Referrals - Patient Instructions - Post Discharge Activity
[2018-04-27 14:39] VITALS: BMI 23.6
[2018-04-27] MEDS ORDERED: morphine CARPU-JECT 4 MG/1 ML DISP.SYRIN IVPUSH ONE (14:50)
[2018-04-27] MEDS ORDERED: morphine SULFATE 4 MG/ML VIAL ONE ×3 (15:01→19:28)
--- NOTE | 2018-04-27 15:37 | PDOC ---
Attending Attestation - Resident Resident Name: Erwin Zhong - ED Attending Attestation I have performed the following: I have examined & evaluated the patient, The case was reviewed & discussed with the resident, I agree w/resident's findings & plan - HPI HPI: 04/27/18 15:38 The patient is a 88 year old female with past medical history significant for HTN, DM, MVP, cardiomegaly, hypothyroidism, Skin CA and Chronic ILD presents to the emergency department via EMS with s/p a mechanical fall at work, with left shoulder pain/injury. The patient reports she was walking when she tripped over her shoes and fell onto outstretched left elbow. The patient reports associated symptoms of numbness and tingling. Denies LOC or head injury. Tripped over shoes , feel onto outstretched left elbow. - Physicial Exam PE: 04/27/18 15:39 General: GCS 15 mild distress 2/2 pain HEENT: Airway intact. Neck: neck supple, no midline C spine tenderness, ROM intact. Resp: Lungs clear, no crepitus Chest: no clavicle or chest wall tenderness CVS: RRR, 2+ pulses throughout. Abdomen: Abdomen soft, nontender Back: Back nontender, no midline spinal tenderness, FROM, no stepoffs. MSK: shoulder abduction/adduction/flexion/extension limited, +left AC joint tenderness, anterior shoulder tenderness. shoulder shrug and rn research strength on left 4/5 actively against resistance. deltoid and upper arm sensation decreased to light touch. +left elbow sensation intact, FROM and no forearm/wrist tenderness. sensation grossly intact in median/radial/ulnar distribution. 2+ radialis pulses bilaterally and symmetric. Neuro: Alert Skin: intact, normal color and well perfused. - Medical Decision Making 04/27/18 15:41 see HPI as documented. Vitals wnl. stable in mild distress 2/2 left shoulder pain. analgesia with morphine given severity of sx. DDx. prox humerus fx. anterior shoulder dislocation, humeral shaft fx. elbow subluxation, radial head fx, olecranon fx. XR_elbow and forearm normal. left shoulder with prox humerus fx and superimposed dislocation. placed in sling for immobilization, analgesia PRN orthopedic cs with Dr. Lindsey/Terry, for possible operative management due to both fx/dislocation. dispo: admit for management of combo fx/dislocation, pt made aware of impression and plan, agreeable. 04/27/18 15:48 04/28/18 07:05
[2018-04-27] MEDS ORDERED: morphine SULFATE 4 MG/ML VIAL IVPUSH ONE (16:05)
[2018-04-27 16:45] LABS: BASO % 0.4 % (0-2.0); EOS % 0.2 % (0-4.5); HEMATOCRIT 42.7 % (32.4-45.2); HEMOGLOBIN 14.7 GM/dL (10.7-15.3); LYMPH % 6.4 % (8-40); MCH 32.6 pg (25.7-33.7); MCHC 34.5 g/dl (32.0-36.0); MEAN CELL VOLUME 94.5 fl (80-96); MEAN PLT VOLUME 9.8 fl (7.5-11.1); MONO % 4.3 % (3.8-10.2); NEUT % 88.7 % (42.8-82.8); PLATELET COUNT 209 K/MM3 (134-434); RBC 4.52 M/mm3 (3.60-5.2); RDW 13.7 % (11.6-15.6); WHITE BLOOD COUNT 14.6 K/mm3 (4.0-10.0)
[2018-04-27 16:58] LABS: INR 1.08 (0.83-1.09); PROTHROMBIN TIME (PATIENT) 12.7 SEC (9.7-13.0)
[2018-04-27 17:06] LABS: ALBUMIN 3.6 g/dl (3.4-5.0); ALK PHOS 119 U/L (45-117); BILIRUBIN,TOTAL 0.9 mg/dL (0.2-1); BLOOD UREA NITROGEN 19 mg/dL (7-18); CALCIUM 9.4 mg/dL (8.5-10.1); CHLORIDE 103 mmol/L (98-107); CO2 28 mmol/L (21-32); CREATININE 0.8 mg/dL (0.55-1.3); GLUCOSE,RANDOM 145 mg/dL (74-106); SGPT/ALT 27 U/L (13-61); SODIUM 141 mmol/L (136-145); TOT PROT 7.1 g/dl (6.4-8.2)
[2018-04-27 17:07] LABS: ANION GAP 11 MMOL/L (8-16); POTASSIUM 4.7 mmol/L (3.5-5.1); SGOT/AST 31 U/L (15-37)
--- NOTE | 2018-04-27 18:49 | HP ---
CHIEF COMPLAINT: fall with left shoulder injury PCP: Dr. Patel Gardner Pulmonolgist Dr. 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 She presents to the ED today via EMS after she suffered a mechanical fall today while working. Patent states that she tripped and fell and landed on her left shoulder sustaining severe pain and injury to the left shoulder. Patient reports associated symptoms of numbness, severe pain and tingling to her left shoulder. She denies any dizziness or lightheadness. Denies hitting her head. ER course was notable for: (1) wbc 14.6 (2) shoulder xray: single view of left shoulder reveals inferior dislocation of the left humerus with left humeral head and neck fracture. there may be a fracture off of the acromion as well. there also appears to be extensive lung disease, appear chronic. (3) PAST MEDICAL HISTORY: Interstitial lung disease Lung nodules Diabetes Leucocytosis hypertension diabetes mitral valve prolapse cardiomegaly hypothyroidism PAST SURGICAL HISTORY: Social History: Smoking: denies Alcohol: denies Drugs: denies Family History: Allergies epinephrine Adverse Reaction (Verified 04/27/18 14:39) Elevated Blood Pressure HOME MEDICATIONS: Home Medications Medication Instructions Recorded Ramipril 2.5 mg PO DAILY 08/20/14 Spironolactone [Aldactone -] 25 mg PO DAILY 08/20/14 Thyroid [[place] Thyroid] 30 mg PO DAILY 12/01/17 PHYSICAL EXAMINATION Vital Signs - 24 hr 04/27/18 14:36 Pulse Rate 89 Respiratory 20 Rate Blood Pressure 120/79 O2 Sat by Pulse 100 Oximetry (%) GENERAL: Awake, alert, and fully oriented, verbalizes pain of her left shoulder HEAD: Normal with no signs of trauma. EYES: Pupils equal, round and reactive to light, extraocular movements intact, sclera anicteric, conjunctiva clear. No lid lag. EARS, NOSE, THROAT: Ears normal, nares patent NECK: Normal range of motion, supple without lymphadenopathy LUNGS: Breath sounds equal, diminished lung sounds bilaterally HEART: Regular rate and rhythm ABDOMEN: Soft, nontender, not distended, normoactive bowel sound MUSCULOSKELETAL: left shoulder dislocation. shoulder abduction. extension limited, left joint tenderness, no forearm/wrist tenderness or pain. + radial pulses LOWER EXTREMITIES: No calf tenderness. No peripheral edema. NEUROLOGICAL: Normal speech PSYCHIATRIC: Cooperative. Good eye contact. Appropriate mood and affect. Laboratory Results - last 24 hr 04/27/18 04/27/18 04/27/18 16:05 16:05 16:05 WBC 14.6 H RBC 4.52 Hgb 14.7 Hct 42.7 MCV 94.5 MCH 32.6 MCHC 34.5 RDW 13.7 Plt Count 209 MPV 9.8 D Absolute Neuts (auto) 12.9 H Neutrophils % 88.7 H Lymphocytes % 6.4 L Monocytes % 4.3 Eosinophils % 0.2 D Basophils % 0.4 D Nucleated RBC % 0 PT with INR 12.70 INR 1.08 Sodium 141 Potassium 4.7 Chloride 103 Carbon Dioxide 28 Anion Gap 11 BUN 19 H Creatinine 0.8 Creat Clearance w eGFR > 60 Random Glucose 145 H Calcium 9.4 Total Bilirubin 0.9 AST 31 ALT 27 Alkaline Phosphatase 119 H Total Protein 7.1 Albumin 3.6 ASSESSMENT/PLAN: 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 She comes in today to the ED via EMS after she suffered a mechanical fall today while working. Patent states that she tripped and fell and landed on her left shoulder sustaining severe pain and injury to the left shoulder. Patient reports associated symptoms of numbness, severe pain and tingling to her left shoulder. She denies any dizziness or lightheadness. Denies hitting her head. ------- left should injury with dislocation Interstitial lung disease Lung nodules Diabetes Leucocytosis hypertension diabetes mitral valve prolapse cardiomegaly hypothyroidism ------- Muscular/skeletal: Left shoulder injury/dislocation s/p mechanical fall. Ortho consulted for possible surgical repair pain managed with morphine Monitor pain levels Endocrine: diabetes: novolog SS, BGMs. Hypothyroidism. continue home meds. Pulm: Interstitial lung disease Lung nodules Patient follows with Dr. Anthony outpatient. ID: Leukocytosis, chronic Elevated on previous labs @ 23. no signs of infection currently. will order blood/urine cultures fen tolerating po monitor electrolytes diabetic diet prophy heparin tid full code Visit type - Emergency Visit Emergency Visit: Yes ED Registration Date: 04/27/18 Care time: The patient presented to the Emergency Department on the above date and was hospitalized for further evaluation of their emergent condition. - New Patient This patient is new to me today: Yes Date on this admission: 04/27/18 - Critical Care Critical Care patient: No
[2018-04-27] MEDS ORDERED: MORPHINE SULFATE 8 MG/ML VIAL IVPUSH PRN (18:52)
[2018-04-27] MEDS ORDERED: ALBUTEROL SO4 2.5/IPRATROPIUM 0.5 INH SOL 3 ML VIAL.NEB. NEB PRN (22:07)
[2018-04-27] MEDS ORDERED: HEPARIN NA (PORCINE) 5,000 UNITS/ML 1ML VIAL ONE (23:27)
[2018-04-27] MEDS ORDERED: INSULIN (NOVOLOG) ASPART 100 UNITS/ML 10ML VIAL ONE (23:28)
[2018-04-27] MEDS: INSULIN SLIDING SCALE (NOVOLOG) 1 VIAL SQ SCH (23:32)
[2018-04-27] MEDS: HEPARIN NA (PORCINE) 5,000 UNITS/ML 1ML VIAL SQ SCH (23:32)
[2018-04-28] MEDS ORDERED: MORPHINE SULFATE 2 MG/ML VIAL ONE ×2 (04:06→09:16)
[2018-04-28] MEDS: MORPHINE SULFATE 2 MG/ML VIAL IVPUSH PRN ×2 (04:10→09:22)
[2018-04-28] MEDS ORDERED: HEPARIN NA (PORCINE) 5,000 UNITS/ML 1ML VIAL ONE (06:44)
[2018-04-28] MEDS ORDERED: INSULIN (NOVOLOG) ASPART 100 UNITS/ML 10ML VIAL ONE ×2 (06:45→21:09)
[2018-04-28 06:49] LABS: HEMOGLOBIN 12.8 GM/dL (10.7-15.3); MCH 30.9 pg (25.7-33.7); MEAN CELL VOLUME 96.7 fl (80-96); PLATELET COUNT 158 K/MM3 (134-434); RBC 4.13 M/mm3 (3.60-5.2); RDW 13.7 % (11.6-15.6); WHITE BLOOD COUNT 11.8 K/mm3 (4.0-10.0)
[2018-04-28] MEDS: INSULIN SLIDING SCALE (NOVOLOG) 1 VIAL SQ SCH ×4 (06:52→21:22)
[2018-04-28] MEDS: HEPARIN NA (PORCINE) 5,000 UNITS/ML 1ML VIAL SQ SCH ×3 (06:52→21:19)
[2018-04-28 07:08] LABS: ANION GAP 6 MMOL/L (8-16); BLOOD UREA NITROGEN 22 mg/dL (7-18); CALCIUM 8.3 mg/dL (8.5-10.1); CHLORIDE 104 mmol/L (98-107); CO2 28 mmol/L (21-32); CREATININE 0.7 mg/dL (0.55-1.3); GLUCOSE,RANDOM 113 mg/dL (74-106); PHOSPHOROUS 3.3 mg/dL (2.5-4.9); POTASSIUM 4.5 mmol/L (3.5-5.1); SODIUM 138 mmol/L (136-145)
[2018-04-28 07:48] LABS: CHOLESTEROL 153 mg/dL (50-200); HDL CHOLESTEROL 65 mg/dL (40-60); TRIGLYCERIDES 65 mg/dL (0-150)
[2018-04-28] MEDS: SPIRONOLACTONE 25 MG TABLET (FP) PO SCH (09:47)
[2018-04-28] MEDS: RAMIPRIL 2.5 MG CAPSULE (FP) PO SCH (09:47)
[2018-04-28] MEDS: THYROID 30 MG TABLET PO SCH (09:48)
--- NOTE | 2018-04-28 12:19 | PDOC ---
*Physical Exam - Vital Signs Last Vital Signs Temp Pulse Resp BP Pulse Ox 98.4 F 90 19 141/72 100 04/28/18 09:00 04/28/18 09:00 04/28/18 09:00 04/28/18 09:00 04/28/18 06:40 ED Treatment Course - LABORATORY CBC & Chemistry Diagram: 04/28/18 06:10 04/28/18 06:10 - RADIOLOGY Radiology Studies Ordered: Category Date Time Status ELBOW-LEFT [RAD] Stat Radiology 04/27/18 14:50 Completed FOREARM- LEFT [RAD] Stat Radiology 04/27/18 14:50 Completed SHOULDER-LEFT [RAD] Stat Radiology 04/27/18 14:50 Completed - Medications Given in the ED: ED Medications Discontinued Medications Generic Name Dose Route Start Last Admin Trade Name Freq PRN Reason Stop Dose Admin Morphine Sulfate 4 mg 04/27/18 14:50 04/27/18 15:15 Morphine Injection - IVPUSH 04/27/18 14:51 4 mg ONCE ONE Administration Morphine Sulfate 4 mg 04/27/18 16:05 04/27/18 16:44 Morphine Sulfate IVPUSH 04/27/18 16:06 4 mg ONCE ONE Administration Morphine Sulfate 4 mg 04/27/18 18:52 04/27/18 19:55 Morphine Injection IVPUSH 4 mg Q4H PRN Administration PAIN LEVEL 7 - 10 Medical Decision Making - Medical Decision Making 88 year old female admitted yesterday after speaking to Dr. Stewart for a left proximal humerus fracture and dislocation. I spoke again to Dr. Lindsey last night and sent him a de-identified electronic picture of the fracture. Spoke to Dr. Lindsey again this morning and he informed me that the shoulder would be operated upon on Monday because she required a total shoulder replacement, requiring special equipment. He will see the patient tonight. He was amenable to her going home with pain medication or staying here til Monday for pain control. 04/28/18 12:15 *DC/Admit/Observation/Transfer Diagnosis at time of Disposition: Humeral fracture Qualifiers: Encounter type: initial encounter Humerus Location: proximal Fracture type: closed Fracture alignment: displaced Laterality: left - Discharge Dispostion Condition at time of disposition: Stable - Referrals - Patient Instructions - Post Discharge Activity
[2018-04-28] MEDS ORDERED: MORPHINE SULFATE 2 MG/ML VIAL IVPUSH PRN ×3 (12:32→13:39)
--- NOTE | 2018-04-28 12:41 | PN ---
Physical Exam: SUBJECTIVE: Patient seen and examined in the ER awaiting bed assignment. still having pain of her left arm. has left sling placed. OBJECTIVE: patient is still having severe pain, not relieved with morphine 2mg push q 4h prn, will make morphine q 3 hours scheduled. Tylenol 650mg q6 scheduled. once pain is better controlled, will switch to oral pain meds. left arm with edema and hematoma. Vital Signs Period Temp Pulse Resp BP Sys/Calderón Pulse Ox Last 24 Hr 97.4 F-98.5 F 75-104 19-20 120-141/72-79 84-100 GENERAL: Awake, alert, and fully oriented, verbalizes pain of her left shoulder HEAD: Normal with no signs of trauma. EYES: Pupils equal, round and reactive to light, extraocular movements intact, sclera anicteric, conjunctiva clear. No lid lag. EARS, NOSE, THROAT: Ears normal, nares patent NECK: Normal range of motion, supple without lymphadenopathy LUNGS: Breath sounds equal, diminished lung sounds bilaterally HEART: Regular rate and rhythm ABDOMEN: Soft, nontender, not distended, normoactive bowel sound MUSCULOSKELETAL: left shoulder dislocation. shoulder abduction. extension limited, left joint tenderness, no forearm/wrist tenderness or pain. LOWER EXTREMITIES: No calf tenderness. No peripheral edema. NEUROLOGICAL: Normal speech PSYCHIATRIC: Cooperative. Good eye contact. Appropriate mood and affect. Laboratory Results - last 24 hr 04/27/18 04/27/18 04/27/18 16:05 16:05 16:05 WBC 14.6 H RBC 4.52 Hgb 14.7 Hct 42.7 MCV 94.5 MCH 32.6 MCHC 34.5 RDW 13.7 Plt Count 209 MPV 9.8 D Absolute Neuts (auto) 12.9 H Neutrophils % 88.7 H Lymphocytes % 6.4 L Monocytes % 4.3 Eosinophils % 0.2 D Basophils % 0.4 D Nucleated RBC % 0 PT with INR INR Sodium 141 Potassium 4.7 Chloride 103 Carbon Dioxide 28 Anion Gap 11 BUN 19 H Creatinine 0.8 Creat Clearance w eGFR > 60 POC Glucometer Random Glucose 145 H Hemoglobin A1c % Calcium 9.4 Phosphorus Magnesium Total Bilirubin 0.9 AST 31 ALT 27 Alkaline Phosphatase 119 H Total Protein 7.1 Albumin 3.6 Triglycerides Cholesterol Total LDL Cholesterol HDL Cholesterol Blood Type O POSITIVE Antibody Screen Negative 04/27/18 04/27/1818 16:05 22:42 23:28 WBC RBC Hgb Hct MCV MCH MCHC RDW Plt Count MPV Absolute Neuts (auto) Neutrophils % Lymphocytes % Monocytes % Eosinophils % Basophils % Nucleated RBC % PT with INR 12.70 INR 1.08 Sodium Potassium Chloride Carbon Dioxide Anion Gap BUN Creatinine Creat Clearance w eGFR POC Glucometer [phone] Random Glucose Hemoglobin A1c % Calcium Phosphorus Magnesium Total Bilirubin AST ALT Alkaline Phosphatase Total Protein Albumin Triglycerides Cholesterol Total LDL Cholesterol HDL Cholesterol Blood Type O POSITIVE Antibody Screen 04/27/18 04/28/18 04/28/18 23:28 06:10 06:10 WBC 11.8 H RBC 4.13 Hgb 12.8 Hct 40.0 MCV 96.7 H MCH 30.9 MCHC 32.0 RDW 13.7 Plt Count 158 D MPV 9.0 Absolute Neuts (auto) Neutrophils % Lymphocytes % Monocytes % Eosinophils % Basophils % Nucleated RBC % PT with INR INR Sodium 138 Potassium 4.5 Chloride 104 Carbon Dioxide 28 Anion Gap 6 L BUN 22 H Creatinine 0.7 Creat Clearance w eGFR > 60 POC Glucometer Random Glucose 113 H Hemoglobin A1c % Calcium 8.3 L Phosphorus 3.3 Magnesium 1.8 Total Bilirubin AST ALT Alkaline Phosphatase Total Protein Albumin Triglycerides 65 Cholesterol 153 Total LDL Cholesterol 79 HDL Cholesterol 65 H Blood Type Antibody Screen 04/28/18 04/28/18 04/28/18 06:10 06:10 06:38 WBC RBC Hgb Hct MCV MCH MCHC RDW Plt Count MPV Absolute Neuts (auto) Neutrophils % Lymphocytes % Monocytes % Eosinophils % Basophils % Nucleated RBC % PT with INR INR Sodium Potassium Chloride Carbon Dioxide Anion Gap BUN Creatinine Creat Clearance w eGFR POC Glucometer 153.85991 Random Glucose Hemoglobin A1c % 6.0 Calcium Phosphorus Magnesium Total Bilirubin AST ALT Alkaline Phosphatase Total Protein Albumin Triglycerides Cancelled Cholesterol Cancelled Total LDL Cholesterol Cancelled HDL Cholesterol Cancelled Blood Type Antibody Screen 04/28/18 11:36 WBC RBC Hgb Hct MCV MCH MCHC RDW Plt Count MPV Absolute Neuts (auto) Neutrophils % Lymphocytes % Monocytes % Eosinophils % Basophils % Nucleated RBC % PT with INR INR Sodium Potassium Chloride Carbon Dioxide Anion Gap BUN Creatinine Creat Clearance w eGFR POC Glucometer 119.67598 Random Glucose Hemoglobin A1c % Calcium Phosphorus Magnesium Total Bilirubin AST ALT Alkaline Phosphatase Total Protein Albumin Triglycerides Cholesterol Total LDL Cholesterol HDL Cholesterol Blood Type Antibody Screen Active Medications Generic Name Dose Route Start Last Admin Trade Name Freq PRN Reason Stop Dose Admin Albuterol/Ipratropium 1 amp 04/27/18 22:07 Duoneb - NEB Q6H PRN SHORTNESS OF BREATH Heparin Sodium (Porcine) 5,000 unit 04/27/18 22:00 04/28/18 06:52 Heparin - SQ 5,000 unit TID DANETTE Administration Insulin Aspart 1 vial 04/27/18 22:00 04/28/18 12:01 Novolog Vial Sliding Scale - SQ Not Given ACHS [facility] Protocol Morphine Sulfate 2 mg 04/28/18 12:32 Morphine Sulfate IVPUSH Q3H PRN PAIN LEVEL 7 - 10 Ramipril 2.5 mg 04/28/18 10:00 04/28/18 09:47 Altace - PO 2.5 mg DAILY DANETTE Administration Spironolactone 25 mg 04/28/18 10:00 04/28/18 09:47 Aldactone - PO 25 mg DAILY DANETTE Administration Thyroid 30 mg 04/28/18 10:00 04/28/18 09:48 [place] Thyroid - PO 30 mg DAILY DANETTE Administration ASSESSMENT/PLAN: 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 She comes to the ED on 04/27/2018 via EMS after she suffered a mechanical fall today while working. Patent states that she tripped and fell and landed on her left shoulder sustaining severe pain and injury to the left shoulder. Patient reports associated symptoms of numbness, severe pain and tingling to her left shoulder. She denies any dizziness or lightheadness. Denies hitting her head. Imaging: shoulder xray: single view of left shoulder reveals inferior dislocation of the left humerus with left humeral head and neck fracture. there may be a fracture off of the acromion as well. there also appears to be extensive lung disease, appear chronic. ------- left should injury with dislocation Interstitial lung disease Lung nodules Diabetes Leucocytosis hypertension diabetes mitral valve prolapse cardiomegaly hypothyroidism ------- Muscular/skeletal: Left shoulder injury/dislocation s/p mechanical fall. Ortho consulted for possible surgical repair. left arm to be maintained immobilized on a sling scheduled morphine q 3 hours as pt is still having severe pain, currently not being controlled as prn morphine dosing. Monitor pain levels. tylenol 650mg [id number]. lidoderm patches also added. Endocrine: diabetes: novolog SS, BGMs. diabetic diet. Hypothyroidism. continue home meds. Pulm: Interstitial lung disease Lung nodules Patient follows with Dr. Anthony outpatient. pulmonary following. ID: Leukocytosis, chronic Elevated on previous labs @ 23. no signs of infection currently. blood/urine cultures pending. fen tolerating po monitor electrolytes diabetic diet prophy heparin tid full code disposition. Visit type - Emergency Visit Emergency Visit: Yes ED Registration Date: 04/27/18 Care time: The patient presented to the Emergency Department on the above date and was hospitalized for further evaluation of their emergent condition. - New Patient This patient is new to me today: No - Critical Care Critical Care patient: No - Discharge Referral Referred to [facility] Med P.C.: No
[2018-04-28] MEDS: LIDOCAINE 5% TOPICAL PATCH TP SCH (12:55)
[2018-04-28] MEDS: ACETAMINOPHEN 325 MG TABLET (FP) PO SCH ×2 (12:56→17:18)
[2018-04-28] MEDS ORDERED: MORPHINE SULFATE 2 MG/ML VIAL IVPUSH SCH (13:00)
[2018-04-28 13:41] LABS: URINE APPEARANCE CLEAR; URINE BILIRUBIN NEGATIVE (<2.0 mg/dL); URINE COLOR YELLOW; URINE GLUCOSE (UA) NEGATIVE (NEGATIVE); URINE KETONE 1+ (NEGATIVE); URINE LEUK ESTERASE NEGATIVE (NEGATIVE); URINE NITRITE NEGATIVE (NEGATIVE); URINE PROTEIN NEGATIVE (NEGATIVE); URINE UROBILINOGEN NEGATIVE mg/dL (0.2-1.0)
--- NOTE | 2018-04-28 14:53 | CON.PULM ---
Consult Consult Specialty:: PULMONARY Referred by:: BITA Reason for Consultation:: COPD - History of Present Illness Chief Complaint: FALL WITH FRACTURE LEFT UPPER EXT History of Present Illness: The patient is a 88 year old female with past medical history significant for HTN, DM, MVP, cardiomegaly, hypothyroidism, Skin CA and Chronic ILD presents to the emergency department via EMS with s/p a mechanical fall with left shoulder pain/injury. The patient reports she was walking when she tripped over her shoes and fell onto outstretched left elbow. The patient reports associated symptoms of numbness and tingling. Denies LOC or head injury. - History Source History Provided By: Patient, Friend, Medical Record Limitations to Obtaining History: No Limitations - Past Medical History [facility] [facility]: No: Alzheimer's Cardio/Vascular: No: AFIB Gastrointestinal: No: Ascites Hepatobiliary: No: Cirrhosis Reproductive: Yes: Postmenopausal Heme/Onc: No: Anemia - Alcohol/Substance Use Hx Alcohol Use: No - Smoking History Smoking history: Never smoked Aproximately how many cigarettes per day: 0 - Social History Usual Living Arrangement: Assisted Living ADL: Support Services Place of : [facility] History of Recent Travel: No Home Medications - Allergies Allergies/Adverse Reactions: Allergies Allergy/AdvReac Type Severity Reaction Status Date / Time epinephrine AdvReac Elevated Verified 04/27/18 14:39 Blood Pressure - Home Medications Home Medications: Ambulatory Orders Ramipril 2.5 mg PO DAILY 08/20/14 Spironolactone [Aldactone -] 25 mg PO DAILY 08/20/14 Thyroid [[place] Thyroid] 30 mg PO DAILY 12/01/17 Family Disease History - Family Disease History Family History: Unremarkable Review of Systems - Review of Systems Constitutional: denies: Fever Eyes: denies: Blurred Vision HENT: denies: Difficult Swallowing Neck: denies: Decreased ROM Cardiovascular: denies: Chest Pain Respiratory: denies: Cough Gastrointestinal: denies: Abdominal Pain Genitourinary: denies: Burning Musculoskeletal: reports: Joint Pain Physical Exam Vital Sings: Vital Signs Temperature 98.2 F 04/28/18 14:13 Pulse Rate 81 04/28/18 14:13 Respiratory Rate 19 04/28/18 14:13 Blood Pressure 145/70 04/28/18 14:13 O2 Sat by Pulse Oximetry (%) 100 04/28/18 09:22 Constitutional: Yes: Calm Eyes: Yes: EOM Intact HENT: Yes: Normocephalic Neck: Yes: Trachea Midline Cardiovascular: Yes: Regular Rate and Rhythm Respiratory: Yes: CTA Bilaterally Edema: Yes Edema: LUE: 2+ Integumentary: Yes: Bruising Neurological: Yes: Alert ...Motor Strength: LUE (SHOULDER IMMOBILIZER) Labs: CBC, BMP 04/28/18 06:10 04/28/18 06:10 REST REVIEWED Imaging - Results X-ray: Report Reviewed, Image Reviewed Problem List - Problems (1) Humeral fracture Code(s): S42.309A - UNSP FRACTURE OF SHAFT OF HUMERUS, UNSP ARM, INIT Qualifiers: Encounter type: initial encounter Humerus Location: proximal Fracture type: closed Fracture alignment: displaced Laterality: left (2) Bronchiectasis Code(s): J47.9 - BRONCHIECTASIS, UNCOMPLICATED (3) HTN (hypertension) Code(s): I10 - ESSENTIAL (PRIMARY) HYPERTENSION (4) ILD (interstitial lung disease) Code(s): J84.9 - INTERSTITIAL PULMONARY DISEASE, UNSPECIFIED (5) Lung nodules Code(s): R91.8 - OTHER NONSPECIFIC ABNORMAL FINDING OF LUNG FIELD Assessment/Plan STABLE CHRONIC LUNG DISEASE ON ICS/LABA NO CONTRAINDICATION FROM A PULMONARY STANDPOINT FOR ORTHOPDIC SURGERY IF DEEMED REQUIRED CONTINUE O2 SUPPLEMENTATION ICS/LABA/KEEGAN Kt KULKARNI MD
--- NOTE | 2018-04-28 17:16 | EKG ---
Test Reason : Blood Pressure : / mmHG Vent. Rate : 099 BPM Atrial Rate : 099 BPM P-R Int : 206 ms QRS Dur : 136 ms QT Int : 390 ms P-R-T Axes : 068 -49 007 degrees QTc Int : 500 ms NORMAL SINUS RHYTHM POSSIBLE LEFT ATRIAL ENLARGEMENT RIGHT BUNDLE BRANCH BLOCK LEFT ANTERIOR FASCICULAR BLOCK BIFASCICULAR BLOCK ABNORMAL ECG WHEN COMPARED WITH ECG OF 30-NOV-2017 22:34, T WAVE INVERSION LESS EVIDENT IN INFERIOR LEADS Confirmed by MD JEANETTE, FLAQUITO ([id number]) on 04/28/2018 5:16:10 PM Referred By: Confirmed By:FLAQUITO REID MD
--- NOTE | 2018-04-28 18:07 | CONSULT ---
Consult - text type - Consultation Consultation Note: FULL CONSULT DICTATED PLAN: CT SCAN, PREOP FOR ORIF V REPLACEMENT ON MONDAY
[2018-04-28] MEDS ORDERED: PT OWN MED DRAWER 7, Y5N ONE (21:10)
[2018-04-28] MEDS: FLUTICASONE/SALMETEROL 100 MCG/50 MCG DISKUS IH SCH (21:17)
[2018-04-28] MEDS: DOCUSATE SODIUM 100 MG CAPSULE (FP) PO SCH (21:19)
[2018-04-28] MEDS: POLYETHYLENE GLYCOL 3350 119 GM BTL PO SCH (21:20)
[2018-04-28] MEDS ORDERED: SENNOSIDES 8.6MG TABLET (FP) PO SCH (22:00)
[2018-04-28] MEDS ORDERED: LIDOCAINE PATCH REMOVAL MC SCH (22:00)
[2018-04-29] MEDS: ACETAMINOPHEN 325 MG TABLET (FP) PO SCH ×3 (00:43→17:30)
[2018-04-29] MEDS: DOCUSATE SODIUM 100 MG CAPSULE (FP) PO SCH ×3 (07:15→21:54)
[2018-04-29] MEDS: HEPARIN NA (PORCINE) 5,000 UNITS/ML 1ML VIAL SQ SCH (07:15)
--- NOTE | 2018-04-29 07:29 | PN ---
Physical Exam: SUBJECTIVE: Patient seen and examined at the bedside. Pain controlled, resting comfortably. no chest pain, no shortness of breath. OBJECTIVE: patient for surgical repair of her left shoulder dislocation today vitals stable cleared for surgical procedure has been kept npo Vital Signs Period Temp Pulse Resp BP Sys/Calderón Pulse Ox Last 24 Hr 97.7 F-98.7 F 81-90 19-20 132-145/70-86 100-100 GENERAL: Awake, alert, and fully oriented HEAD: Normal with no signs of trauma. EYES: Pupils equal, round and reactive to light, extraocular movements intact, sclera anicteric, conjunctiva clear. No lid lag. EARS, NOSE, THROAT: Ears normal, nares patent NECK: Normal range of motion, supple without lymphadenopathy LUNGS: Breath sounds equal, diminished lung sounds bilaterally HEART: Regular rate and rhythm on auscultation ABDOMEN: Soft, nontender, not distended, normoactive bowel sound MUSCULOSKELETAL: left shoulder dislocation. shoulder abduction. extension limited, left joint tenderness, no forearm/wrist tenderness or pain. LOWER EXTREMITIES: No calf tenderness. No peripheral edema. NEUROLOGICAL: Normal speech PSYCHIATRIC: Cooperative. Good eye contact. Appropriate mood and affect. Laboratory Results - last 24 hr 04/28/18 04/28/18 04/28/18 06:10 06:10 06:10 WBC 11.8 H RBC 4.13 Hgb 12.8 Hct 40.0 MCV 96.7 H MCH 30.9 MCHC 32.0 RDW 13.7 Plt Count 158 D MPV 9.0 POC Glucometer Hemoglobin A1c % 6.0 Triglycerides 65 Cholesterol 153 Total LDL Cholesterol 79 HDL Cholesterol 65 H Urine Color Urine Appearance Urine pH Ur Specific [place] Urine Protein Urine Glucose (UA) Urine Ketones Urine Blood Urine Nitrite Urine Bilirubin Urine Urobilinogen Ur Leukocyte Esterase 04/28/18 04/28/18 04/28/18 11:36 13:06 17:15 WBC RBC Hgb Hct MCV MCH MCHC RDW Plt Count MPV POC Glucometer [phone] 98 Hemoglobin A1c % Triglycerides Cholesterol Total LDL Cholesterol HDL Cholesterol Urine Color Yellow Urine Appearance Clear Urine pH 5.0 Ur Specific [place] 1.023 Urine Protein Negative Urine Glucose (UA) Negative Urine Ketones 1+ H Urine Blood Negative Urine Nitrite Negative Urine Bilirubin Negative Urine Urobilinogen Negative Ur Leukocyte Esterase Negative 04/28/18 21:21 WBC RBC Hgb Hct MCV MCH MCHC RDW Plt Count MPV POC Glucometer 121 Hemoglobin A1c % Triglycerides Cholesterol Total LDL Cholesterol HDL Cholesterol Urine Color Urine Appearance Urine pH Ur Specific [place] Urine Protein Urine Glucose (UA) Urine Ketones Urine Blood Urine Nitrite Urine Bilirubin Urine Urobilinogen Ur Leukocyte Esterase Active Medications Generic Name Dose Route Start Last Admin Trade Name Freq PRN Reason Stop Dose Admin Acetaminophen 650 mg 04/28/18 13:30 04/29/18 07:15 Tylenol - PO Not Given Q6HPO [facility] Albuterol/Ipratropium 1 amp 04/27/18 22:07 Duoneb - NEB Q6H PRN SHORTNESS OF BREATH Docusate Sodium 100 mg 04/28/18 22:00 04/29/18 07:15 Colace - PO Not Given TID [facility] Heparin Sodium (Porcine) 5,000 unit 04/27/18 22:00 04/29/18 07:15 Heparin - SQ Not Given TID [facility] Insulin Aspart 1 vial 04/27/18 22:00 04/28/18 21:22 Novolog Vial Sliding Scale - SQ Not Given ACHS [facility] Protocol Lidocaine 1 patch 04/28/18 12:45 04/28/18 12:55 Lidoderm Patch - TP Not Given DAILY [facility] Miscellaneous 1 each 04/28/18 22:00 04/28/18 21:25 Lidoderm Patch Removal MC Not Given DAILY@2200 [facility] Morphine Sulfate 2 mg 04/28/18 13:39 04/28/18 16:09 Morphine Sulfate IVPUSH 2 mg Q3H PRN Administration PAIN LEVEL 7 - 10 Polyethylene Glycol 17 gm 04/28/18 22:00 04/28/18 21:20 Miralax (For Daily Use) - PO 17 gm BID DANETTE Administration Ramipril 2.5 mg 04/28/18 10:00 04/28/18 09:47 Altace - PO 2.5 mg DAILY DANETTE Administration Fluticasone/Salmeterol 1 puff 04/28/18 22:00 04/28/18 21:17 Advair 100mcg/50mcg - IH 1 puff BID DANETTE Administration Senna 2 tab 04/28/18 22:00 04/28/18 21:20 Senna - PO 2 tab HS DANETTE Administration Spironolactone 25 mg 04/28/18 10:00 04/28/18 09:47 Aldactone - PO 25 mg DAILY DANETTE Administration Thyroid 30 mg 04/28/18 10:00 04/28/18 09:48 [place] Thyroid - PO 30 mg DAILY DANETTE Administration ASSESSMENT/PLAN: 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 She comes to the ED on 04/27/2018 via EMS after she suffered a mechanical fall today while working. Patent states that she tripped and fell and landed on her left shoulder sustaining severe pain and injury to the left shoulder. Patient reports associated symptoms of numbness, severe pain and tingling to her left shoulder. She denies any dizziness or lightheadness. Denies hitting her head. Imaging: shoulder xray: single view of left shoulder reveals inferior dislocation of the left humerus with left humeral head and neck fracture. there may be a fracture off of the acromion as well. there also appears to be extensive lung disease, appear chronic. ------- left should injury with dislocation Interstitial lung disease Lung nodules Diabetes Leucocytosis hypertension diabetes mitral valve prolapse cardiomegaly hypothyroidism ------- Muscular/skeletal: Left shoulder injury/dislocation s/p mechanical fall. Ortho consulted for surgical repair. left arm to be maintained immobilized on a sling on morphine q 3 hours for pain control Monitor pain levels. tylenol 650mg q6 scheduled. lidoderm patches also added. Endocrine: diabetes: novolog SS, BGMs. diabetic diet. diabetes controlled. Hypothyroidism. continue home meds. Cardiology: Hypertension. controlled. hx of mitral valve prolapse On altace and aldactone echo 11/2017: lv systolic fx normal, impaired lv relaxation, tract to mild regurg. mild tr, trace to mild aortic reg. mild pulm valve regurg. Pulm: Interstitial lung disease Lung nodules COPD Patient follows with Dr. Anthony outpatient. pulmonary following. on advair, duonebs. ID: Leukocytosis, chronic Elevated on previous labs @ 23. wbc 11 currently with no signs of infection currently. blood/urine cultures negative fen tolerating po monitor electrolytes diabetic diet prophy heparin tid disposition. full code. Visit type - Emergency Visit Emergency Visit: Yes ED Registration Date: 04/27/18 Care time: The patient presented to the Emergency Department on the above date and was hospitalized for further evaluation of their emergent condition. - New Patient This patient is new to me today: No - Critical Care Critical Care patient: No - Discharge Referral Referred to [facility] Med P.C.: No
[2018-04-29] MEDS ORDERED: PT OWN MED DRAWER 7, Y5N ONE ×2 (07:32→21:48)
[2018-04-29] MEDS: SPIRONOLACTONE 25 MG TABLET (FP) PO SCH (07:47)
[2018-04-29] MEDS: RAMIPRIL 2.5 MG CAPSULE (FP) PO SCH (07:47)
[2018-04-29 07:50] LABS: BASO % 0.3 % (0-2.0); EOS % 2.4 % (0-4.5); HEMATOCRIT 38.8 % (32.4-45.2); HEMOGLOBIN 12.4 GM/dL (10.7-15.3); LYMPH % 12.4 % (8-40); MCH 30.9 pg (25.7-33.7); MCHC 32.1 g/dl (32.0-36.0); MEAN CELL VOLUME 96.3 fl (80-96); MEAN PLT VOLUME 9.2 fl (7.5-11.1); NEUT % 74.9 % (42.8-82.8); PLATELET COUNT 148 K/MM3 (134-434); RBC 4.03 M/mm3 (3.60-5.2)
[2018-04-29] MEDS: INSULIN SLIDING SCALE (NOVOLOG) 1 VIAL SQ SCH ×3 (07:50→22:02)
[2018-04-29] MEDS ORDERED: DEXAMETHASONE SOD PHOSPHATE/PF 10 MG/ML SDV ONE (07:53)
[2018-04-29] MEDS ORDERED: ROPIVACAINE HCL 0.5% 30ML VIAL ONE (07:53)
[2018-04-29 08:29] LABS: ALBUMIN 2.7 g/dl (3.4-5.0); ALK PHOS 82 U/L (45-117); ANION GAP 6 MMOL/L (8-16); BILIRUBIN,TOTAL 0.9 mg/dL (0.2-1); BLOOD UREA NITROGEN 13 mg/dL (7-18); CALCIUM 8.4 mg/dL (8.5-10.1); CHLORIDE 107 mmol/L (98-107); CO2 28 mmol/L (21-32); CREATININE 0.6 mg/dL (0.55-1.3); GLUCOSE,RANDOM 97 mg/dL (74-106); POTASSIUM 4.2 mmol/L (3.5-5.1); SGOT/AST 25 U/L (15-37); SGPT/ALT 22 U/L (13-61); SODIUM 141 mmol/L (136-145); TOT PROT 5.6 g/dl (6.4-8.2)
[2018-04-29] MEDS ORDERED: SUCCINYLCHOLINE CHLORIDE 200 MG/10 ML VIAL ONE (08:53)
[2018-04-29] MEDS ORDERED: PROPOFOL 20 ML ONE ×3 (08:53)
[2018-04-29] MEDS ORDERED: ceFAZolin SODIUM 1 GM VIAL IVPB ONE (09:15)
[2018-04-29 09:18] LABS: INR 1.06 (0.83-1.09); PROTHROMBIN TIME (PATIENT) 12.5 SEC (9.7-13.0)
[2018-04-29] MEDS ORDERED: ROCURONIUM BROMIDE 50 MG/5 ML VIAL ONE (09:28)
[2018-04-29] MEDS ORDERED: VANCOMYCIN 1,000 MG VIAL (RESTRICTED TO ID ONLY) ONE (10:07)
[2018-04-29] MEDS ORDERED: ePHEDrine SULFATE 50 MG/1 ML AMPULE ONE (10:16)
[2018-04-29] MEDS ORDERED: VANCOMYCIN 1,000 MG VIAL (RESTRICTED TO ID ONLY) IVPB ONE (10:50)
[2018-04-29] MEDS ORDERED: NEOSTIGMINE METHYLSULFATE 0.5 MG/ML - 10 ML MDV ONE (10:50)
[2018-04-29] MEDS ORDERED: GLYCOPYRROLATE 0.2 MG/1 ML VIAL ONE (10:53)
[2018-04-29] MEDS ORDERED: ONDANSETRON 4 MG/2 ML VIAL IVPUSH PRN ×3 (11:14→12:06)
[2018-04-29] MEDS ORDERED: PROMETHAZINE HCL 25 MG/1 ML VIAL IVPUSH PRN ×2 (11:14→12:06)
[2018-04-29] MEDS ORDERED: PROMETHAZINE HCL 25 MG/1 ML VIAL IVPB PRN ×2 (11:14→12:06)
[2018-04-29] MEDS ORDERED: HYDROmorphone *PCA* 10MG/50ML DISP.SYRIN PCA SCH (11:15)
--- NOTE | 2018-04-29 11:20 | OP ---
Operative Note - Note: Operative Date: 04/29/18 Pre-Operative Diagnosis: 4 PART FX DISLOCATION LEFT SHOULDER Operation: L REVERSE SHOULDER REPLACEMENT Post-Operative Diagnosis: Same as Pre-op Surgeon: Harris Lindsey Anesthesia: General Specimens Removed: HUMERAL HEAD Estimated Blood Loss (mls): 500 Operative Report Dictated: Yes
[2018-04-29] MEDS ORDERED: ALBUTEROL SO4 2.5/IPRATROPIUM 0.5 INH SOL 3 ML VIAL.NEB. NEB PRN (12:06)
--- NOTE | 2018-04-29 12:59 | PN ---
Progress Note (short form) - Note Progress Note: PULMONARY AWAKE/ALERT HAS RETURNED FROM LEFT SHOULDER REPAIR VSS/AFEBRILE ANICTERIC GOOD B/L ANTERIOR AIR ENTRY S1S2 BS+ LEFT SHOULDER IMMOBILIZER LABS/MEDS/NOTES REVIEWED (1) Humeral fracture Code(s): S42.309A - UNSP FRACTURE OF SHAFT OF HUMERUS, UNSP ARM, INIT Qualifiers: Encounter type: initial encounter Humerus Location: proximal Fracture type: closed Fracture alignment: displaced Laterality: left (2) Bronchiectasis Code(s): J47.9 - BRONCHIECTASIS, UNCOMPLICATED (3) HTN (hypertension) Code(s): I10 - ESSENTIAL (PRIMARY) HYPERTENSION (4) ILD (interstitial lung disease) Code(s): J84.9 - INTERSTITIAL PULMONARY DISEASE, UNSPECIFIED (5) Lung nodules Code(s): R91.8 - OTHER NONSPECIFIC ABNORMAL FINDING OF LUNG FIELD Assessment/Plan STABLE CHRONIC LUNG DISEASE ON ICS/LABA CONTINUE O2 SUPPLEMENTATION ICS/LABA/KEEGAN STABLE POST SURG DVT PROPHYLAXSIS Kt KULKARNI MD Problem List - Problems (1) Humeral fracture Code(s): S42.309A - UNSP FRACTURE OF SHAFT OF HUMERUS, UNSP ARM, INIT Qualifiers: Encounter type: initial encounter Humerus Location: proximal Fracture type: closed Fracture alignment: displaced Laterality: left (2) Bronchiectasis Code(s): J47.9 - BRONCHIECTASIS, UNCOMPLICATED (3) HTN (hypertension) Code(s): I10 - ESSENTIAL (PRIMARY) HYPERTENSION (4) ILD (interstitial lung disease) Code(s): J84.9 - INTERSTITIAL PULMONARY DISEASE, UNSPECIFIED (5) Lung nodules Code(s): R91.8 - OTHER NONSPECIFIC ABNORMAL FINDING OF LUNG FIELD
--- NOTE | 2018-04-29 15:05 | OP ---
DATE OF OPERATION: 04/29/2018 PREOPERATIVE DIAGNOSIS: Left fracture dislocation of the shoulder. PROCEDURE: Left reverse shoulder replacement. SURGICAL ATTENDING: Harris Lindsey MD ANESTHESIA: General with endotracheal intubation. POSITION: Beach chair. CLOSURE: House reverse shoulder replacement with 5 screws in the glenoid with 32 glenosphere, an 11 cemented femoral stem with +6 polyethylene, number 2 FiberWire for tuberosities, and all Vicryl for deltoid, 2-0 Vicryl subcutaneous, and regi for skin. ESTIMATED BLOOD LOSS: Approximately 400 to 500 mL. COMPLICATIONS: None. CONDITION: To recovery room in stable condition. DESCRIPTION OF OPERATIVE PROCEDURE: Patient taken to the operating room on April 29, 2018. General anesthesia with endotracheal intubation was administered by the anesthesiologist. Fluoroscopy prior to the operation revealed that the humeral head was completely off from the proximal humerus and was stationed in the subcoracoid region. We then elected to proceed forward with a reverse left shoulder replacement. The patient was placed in the beach chair position with all prominences well padded. The left shoulder area was prepped and draped in the usual sterile fashion. An 8 to 10 cm deltopectoral incision was incised, hemostasis achieved with Bovie cautery. Flaps were made medially and laterally to perform the procedure. The deltopectoral interval was identified. The cephalic vein was retracted medially with all perforators being cauterized, exposing the subdeltoid region. Retractors were placed in this layer. The biceps tendon was identified and the interval was developed up to its insertion. The sutures were placed in the fractured off greater tuberosity and lesser tuberosity with number 2 FiberWire. Those were used to retract and expose the glenoid, which was underneath. All loose fragments and bone were debrided. The humeral head was found to be completely displaced and it wrapped around the brachial artery and the nerves in the subcoracoid region. They were teased off and then the humeral head was developed. There was a branch of the brachial artery that was cut by the humeral head. This was tied off with 0 Vicryl vascular ties. The brachial artery itself was intact, as were the nerves in the subcoracoid region. Anterior posterior retractors were placed around the glenoid, exposing the glenoid. The guide was placed, drilling the central hole in the inferior third of the glenoid. This was left in place to allow reaming to get some bleeding bone on the inferior aspect of the glenoid. A medium baseplate was then screwed into place with 1 large center screw and 4 screws circumferentially. These screws were drilled, depth gauged, and screwed with the appropriate length screws, achieving excellent purchase on the glenoid. A 32 glenosphere was then cold-welded and was secured in place. Next, our attention was directed to the proximal humerus. The intramedullary canal was hand reamed with serial large reamers until a 12 achieved chatter. A trial reduction with an 11 component with the appropriate 30 to 40 degrees of retroversion and leaving the trial proud on the humeral shaft was performed. This was done with a +6 polyethylene plastic and was reduced through a range of motion and stability was found to be excellent. The trial components were removed and the real component was then cemented using modern generation cement techniques with antibiotic cement and left proud to the same amount that we left the trial proud. All excess cement was removed. Prior to cementing, 2 drill holes were placed in the humeral shaft and passed number 2 FiberWire sutures, one anterior posterior, one lateral position. These will be used to close the tuberosities. The polyethylene was then cold-welded to the stem and the shoulder was reduced. Again range of motion and stability were excellent in all planes. The tuberosities were then pulled around. They were sutured in multiple directions. They were sutured to each other. They were sutured each individually to the humeral component through the holes in the component on the lateral side of the component. The subscapularis ones were sutured to the anterior holes and the greater tuberosity and posterior aspect of bone to the posterior holes. There was also a suture that was placed through both tuberosities and through the holes in the component, then sutured to each other. The sutures that were placed through the humeral shaft were then also sutured to the tuberosities themselves, reducing the tuberosities to the shaft as well. The construct was taken through a range of motion and found to be very stable. The humeral head was curetted to deliver any cancellous bone, and that was packed underneath the tuberosities to aid in healing of the tuberosities to each other and to the components. The shoulder was irrigated with copious amounts of irrigation, ensured hemostasis throughout. Vancomycin powder was placed in the incision. The deltopectoral interval was closed with 0 Vicryl running suture, 2-0 for subcutaneous, and regi for skin. Sterile pressure dressing followed by shoulder immobilizer was applied. Patient awakened from anesthesia and transferred to recovery room in stable condition, no complications. Estimated blood loss approximately 500 mL. Sujatha [id number]
--- NOTE | 2018-04-29 15:23 | CONS ---
DATE OF CONSULTATION: DATE OF DICTATION: 04/28/2018 ORTHOPEDIC CONSULTATION/[facility] The patient is an 88-year-old female status post fall yesterday, complaining of left shoulder pain. Patient was admitted with fracture/dislocation of the left shoulder and orthopedic consultation was requested. Patient denies LOC. No lightheadedness, blurry vision, dizziness. PHYSICAL EXAMINATION: General: Patient was alert and oriented x3. Extremities: She has an absent shoulder region below the acromion with the humeral head palpated anteriorly. She has good range of motion of elbow, wrist, and fingers, but she lacks extension of her wrist and she has numbness in her fingers in the radial nerve distribution mostly. Brisk capillary refill. X-rays, which I reviewed, show only 1 film of the left shoulder, which shows that the greater tuberosity of the humeral head is dislocated; question if there is a proximal humerus fracture as well. The shoulder is dislocated anteriorly and inferiorly. IMPRESSION: Left fracture/dislocation of the glenohumeral joint, definite greater tuberosity displaced fracture, questionable proximal humerus fracture as well. I attempted a gentle closed reduction at the bedside and was unsuccessful. With the patient's worsening neurological status, I recommend that we not wait with operative intervention and will take her to the operating [facility] in the a.m. and do either a closed reduction, open reduction, or a hemiarthroplasty. JADA VASQUEZ M.D. [id number]
[2018-04-29] MEDS: MORPHINE SULFATE 2 MG/ML VIAL IVPUSH PRN ×2 (17:29→21:50)
[2018-04-29] MEDS: CEFAZOLIN 1 GM/D5W 1 GM/50 ML BAG IVPB SCH (17:30)
[2018-04-29] MEDS ORDERED: CEFAZOLIN 1 GM/D5W 50 ML IVPB SCH (18:00)
[2018-04-29] MEDS ORDERED: INSULIN (NOVOLOG) ASPART 100 UNITS/ML 10ML VIAL ONE (21:48)
[2018-04-29] MEDS: SENNOSIDES 8.6MG TABLET (FP) PO SCH (21:54)
[2018-04-29] MEDS: FLUTICASONE/SALMETEROL 100 MCG/50 MCG DISKUS IH SCH (21:54)
[2018-04-29] MEDS: POLYETHYLENE GLYCOL 3350 119 GM BTL PO SCH (22:07)
[2018-04-30] MEDS: ACETAMINOPHEN 325 MG TABLET (FP) PO SCH ×4 (01:39→17:23)
[2018-04-30] MEDS: CEFAZOLIN 1 GM/D5W 1 GM/50 ML BAG IVPB SCH (01:39)
[2018-04-30] MEDS: DOCUSATE SODIUM 100 MG CAPSULE (FP) PO SCH ×3 (05:27→21:15)
[2018-04-30] MEDS ORDERED: PT OWN MED DRAWER 7, Y5N ONE ×2 (06:12→10:25)
[2018-04-30] MEDS: INSULIN SLIDING SCALE (NOVOLOG) 1 VIAL SQ SCH ×4 (06:35→21:24)
[2018-04-30] MEDS: THYROID 30 MG TABLET PO SCH (06:42)
[2018-04-30 08:53] LABS: BASO % 0.2 % (0-2.0); EOS % 1.8 % (0-4.5); HEMATOCRIT 33.7 % (32.4-45.2); HEMOGLOBIN 11.1 GM/dL (10.7-15.3); LYMPH % 12.8 % (8-40); MCH 31.2 pg (25.7-33.7); MCHC 33.1 g/dl (32.0-36.0); MEAN CELL VOLUME 94.2 fl (80-96); MEAN PLT VOLUME 9.2 fl (7.5-11.1); MONO % 12.8 % (3.8-10.2); NEUT % 72.4 % (42.8-82.8); PLATELET COUNT 123 K/MM3 (134-434); RBC 3.57 M/mm3 (3.60-5.2); RDW 13.9 % (11.6-15.6); WHITE BLOOD COUNT 13.8 K/mm3 (4.0-10.0)
--- NOTE | 2018-04-30 09:17 | PN ---
Progress Note (short form) - Note Progress Note: Anesthesia postop note 88 y/o F s/p GA for reverse shoulder replacement POD#1, vss, aaox3, pain well controlled No anesthesia complications.
[2018-04-30 09:24] LABS: ALBUMIN 2.2 g/dl (3.4-5.0); ALK PHOS 63 U/L (45-117); ANION GAP 6 MMOL/L (8-16); BILIRUBIN,TOTAL 1.6 mg/dL (0.2-1); BLOOD UREA NITROGEN 11 mg/dL (7-18); CALCIUM 8.1 mg/dL (8.5-10.1); CHLORIDE 103 mmol/L (98-107); CO2 29 mmol/L (21-32); CREATININE 0.6 mg/dL (0.55-1.3); GLUCOSE,RANDOM 115 mg/dL (74-106); POTASSIUM 4.2 mmol/L (3.5-5.1); SGOT/AST 33 U/L (15-37); SGPT/ALT 20 U/L (13-61); SODIUM 139 mmol/L (136-145); TOT PROT 4.7 g/dl (6.4-8.2)
--- NOTE | 2018-04-30 10:08 | PN ---
Progress Note (short form) - Note Progress Note: Ortho Pt seen and examined s/p left reverse TSA pod #1 Selected Entries 04/30/18 04:00 Temperature 98.7 F Pulse Rate 86 Respiratory 20 Rate Blood Pressure 108/65 Laboratory Tests 04/30/18 08:25 WBC 13.8 H Hgb 11.1 Hct 33.7 Plt Count 123 L dressing c/d/i, + erythema, +ttp, + wrist drop, incr sensation from yesterday a/p wrist splint applied for wrist drop shoulder immobilizer when not in PT PT eval for ROM exercises ice to left shoulder 15 min q 3 hrs pain control d/c planning
--- NOTE | 2018-04-30 10:30 | PN ---
Progress Note (short form) - Note Progress Note: PULMONARY s/p left shoulder replacement. Denies shortness of breath, cough or wheezing. Vital Signs Period Temp Pulse Resp BP Sys/Calderón Pulse Ox Last 24 Hr 97.6 F-98.7 F 86-117 18-20 101-150/55-76 96-100 Gen: NAD at rest Heart: RRR Lung: decreased breath sounds at the bases Abd: soft, nontender Ext: left shoulder immobilized CBC, BMP 04/30/18 08:25 04/30/18 08:25 Active Medications Acetaminophen (Tylenol -) 650 mg PO Q6HPO [facility] Last Admin: 04/30/18 05:27 Dose: 650 mg Albuterol/Ipratropium (Duoneb -) 1 amp NEB Q6H PRN PRN Reason: SHORTNESS OF BREATH Docusate Sodium (Colace -) 100 mg PO TID [facility] Last Admin: 04/30/18 05:27 Dose: 100 mg Insulin Aspart (Novolog Vial Sliding Scale -) 1 vial SQ [facility]; Protocol Last Admin: 04/30/18 06:35 Dose: Not Given Morphine Sulfate (Morphine Sulfate) 2 mg IVPUSH Q3H PRN PRN Reason: PAIN LEVEL 7 - 10 Last Admin: 04/29/18 21:50 Dose: 2 mg Ondansetron HCl (Zofran Injection) 4 mg IVPUSH Q6H PRN PRN Reason: NAUSEA AND/OR VOMITING Polyethylene Glycol (Miralax (For Daily Use) -) 17 gm PO BID [facility] Last Admin: 04/29/18 22:07 Dose: 17 gm Ramipril (Altace -) 2.5 mg PO DAILY [facility] Fluticasone/Salmeterol (Advair 100mcg/50mcg -) 1 puff IH BID [facility] Last Admin: 04/29/18 21:54 Dose: 1 puff Senna (Senna -) 2 tab PO HS [facility] Last Admin: 04/29/18 21:54 Dose: 2 tab Spironolactone (Aldactone -) 25 mg PO DAILY [facility] Thyroid ([place] Thyroid -) 30 mg PO ACBK [facility] Last Admin: 04/30/18 06:42 Dose: 30 mg A/P Left Shoulder Fracture s/p left shoulder replacement Interstitial Lung Disease HTN DM MVP Hypothyroidism - pain control - incentive spirometry - inhaled bronchodilators - rehab/PT - DVT prophylaxis
[2018-04-30] MEDS: SPIRONOLACTONE 25 MG TABLET (FP) PO SCH (10:54)
[2018-04-30] MEDS: POLYETHYLENE GLYCOL 3350 119 GM BTL PO SCH ×2 (10:55→21:16)
[2018-04-30] MEDS: RAMIPRIL 2.5 MG CAPSULE (FP) PO SCH (10:57)
[2018-04-30] MEDS: BUDESONIDE/FORMETEROL FUMARATE 80/4.5 mcg INHALER IH SCH ×2 (11:40→21:16)
[2018-04-30] MEDS ORDERED: oxyCODONE HCL 5 MG TABLET PO PRN (13:30)
--- NOTE | 2018-04-30 19:17 | PN ---
Physical Exam: SUBJECTIVE: Patient seen and examined at the bedside. OBJECTIVE: Pt seen and examined s/p left reverse TSA pod #1 s/p 1 unit of prbc Vital Signs Period Temp Pulse Resp BP Sys/Calderón Pulse Ox Last 24 Hr 98.1 F-98.7 F 86-98 20-20 101-127/55-71 100 GENERAL: Awake, alert, and fully oriented HEAD: Normal with no signs of trauma. EYES: Pupils equal, round and reactive to light, extraocular movements intact, sclera anicteric, conjunctiva clear. No lid lag. EARS, NOSE, THROAT: Ears normal, nares patent NECK: Normal range of motion, supple without lymphadenopathy LUNGS: Breath sounds equal, diminished lung sounds bilaterally HEART: Regular rate and rhythm on auscultation ABDOMEN: Soft, nontender, not distended, normoactive bowel sound MUSCULOSKELETAL: left shoulder dislocation. s/p mechanical fall POD #1 left reverse TSA LOWER EXTREMITIES: No calf tenderness. No peripheral edema. NEUROLOGICAL: Normal speech PSYCHIATRIC: Cooperative. Good eye contact. Appropriate mood and affect. Laboratory Results - last 24 hr 04/29/18 04/30/18 04/30/18 22:01 05:29 08:25 WBC 13.8 H RBC 3.57 L Hgb 11.1 Hct 33.7 MCV 94.2 MCH 31.2 MCHC 33.1 RDW 13.9 Plt Count 123 L MPV 9.2 Absolute Neuts (auto) 10.0 H Neutrophils % 72.4 Lymphocytes % 12.8 Monocytes % 12.8 H Eosinophils % 1.8 Basophils % 0.2 Nucleated RBC % 0 Sodium Potassium Chloride Carbon Dioxide Anion Gap BUN Creatinine Creat Clearance w eGFR POC Glucometer 135 129 Random Glucose Calcium Total Bilirubin AST ALT Alkaline Phosphatase Total Protein Albumin 04/30/18 04/30/18 04/30/18 08:25 11:45 16:35 WBC RBC Hgb Hct MCV MCH MCHC RDW Plt Count MPV Absolute Neuts (auto) Neutrophils % Lymphocytes % Monocytes % Eosinophils % Basophils % Nucleated RBC % Sodium 139 Potassium 4.2 Chloride 103 Carbon Dioxide 29 Anion Gap 6 L BUN 11 Creatinine 0.6 Creat Clearance w eGFR > 60 POC Glucometer 121 126 Random Glucose 115 H Calcium 8.1 L Total Bilirubin 1.6 H AST 33 ALT 20 Alkaline Phosphatase 63 Total Protein 4.7 L Albumin 2.2 L Active Medications Generic Name Dose Route Start Last Admin Trade Name Freq PRN Reason Stop Dose Admin Acetaminophen 650 mg 04/29/18 18:00 04/30/18 17:23 Tylenol - PO 650 mg Q6HPO DANETTE Administration Albuterol/Ipratropium 1 amp 04/29/18 12:06 Duoneb - NEB Q6H PRN SHORTNESS OF BREATH Budesonide/Formoterol Fumarate 2 puff 04/30/18 10:30 04/30/18 11:40 Symbicort 80/4.5mcg - IH 2 puff BID DANETTE Administration Docusate Sodium 100 mg 04/29/18 14:00 04/30/18 14:17 Colace - PO 100 mg TID DANETTE Administration Insulin Aspart 1 vial 04/29/18 16:30 04/30/18 16:36 Novolog Vial Sliding Scale - SQ Not Given ACHS DANETTE Protocol Ondansetron HCl 4 mg 04/29/18 12:06 Zofran Injection IVPUSH Q6H PRN NAUSEA AND/OR VOMITING Oxycodone HCl 5 mg 04/30/18 13:30 Roxicodone - PO Q4H PRN PAIN LEVEL 7 - 10 Polyethylene Glycol 17 gm 04/29/18 22:00 04/30/18 10:55 Miralax (For Daily Use) - PO 17 gm BID DANETTE Administration Ramipril 2.5 mg 04/30/18 10:00 04/30/18 10:57 Altace - PO 2.5 mg DAILY DANETTE Administration Senna 2 tab 04/29/18 22:00 04/29/18 21:54 Senna - PO 2 tab HS DANETTE Administration Spironolactone 25 mg 04/30/18 10:00 04/30/18 10:54 Aldactone - PO 25 mg DAILY DANETTE Administration Thyroid 30 mg 04/30/18 07:00 04/30/18 06:42 [place] Thyroid - PO 30 mg ACBK DANETTE Administration ASSESSMENT/PLAN: 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 She comes to the ED on 04/27/2018 via EMS after she suffered a mechanical fall today while working. Patent states that she tripped and fell and landed on her left shoulder sustaining severe pain and injury to the left shoulder. She denies any dizziness or lightheadness. Denies hitting her head. Imaging: shoulder xray: single view of left shoulder reveals inferior dislocation of the left humerus with left humeral head and neck fracture. there may be a fracture off of the acromion as well. there also appears to be extensive lung disease, appear chronic. ------- left should injury with dislocation Interstitial lung disease Lung nodules Diabetes Leucocytosis hypertension diabetes mitral valve prolapse cardiomegaly hypothyroidism ------- Muscular/skeletal: Left shoulder injury/dislocation s/p mechanical fall. s/p left reverse TSA pod # 1 pain control on oxycodone - incentive spirometer - bowel regimen - pain management - discharge planning. SW coordinating. Endocrine: diabetes: novolog SS, BGMs. diabetic diet. diabetes controlled. Hypothyroidism. continue home meds. Cardiology: Hypertension. controlled. hx of mitral valve prolapse On altace and aldactone echo 11/2017: lv systolic fx normal, impaired lv relaxation, tract to mild regurg. mild tr, trace to mild aortic reg. mild pulm valve regurg. Pulm: Interstitial lung disease Lung nodules COPD Patient follows with Dr. Anthony outpatient. pulmonary following. on advairbhaskar. ID: Leukocytosis, chronic Elevated on previous labs @ 23. wbc 13 currently with no signs of infection currently. blood/urine cultures negative fen tolerating po monitor electrolytes diabetic diet prophy SCDs disposition. full code. Visit type - Emergency Visit Emergency Visit: Yes ED Registration Date: 04/27/18 Care time: The patient presented to the Emergency Department on the above date and was hospitalized for further evaluation of their emergent condition. - New Patient This patient is new to me today: No - Critical Care Critical Care patient: No - Discharge Referral Referred to [facility] No
[2018-04-30] MEDS: RANITIDINE HCL 150 MG TABLET (FP) PO SCH (21:16)
[2018-04-30] MEDS: SENNOSIDES 8.6MG TABLET (FP) PO SCH (21:16)
[2018-05-01] MEDS: ACETAMINOPHEN 325 MG TABLET (FP) PO SCH ×4 (00:50→17:30)
[2018-05-01] MEDS: DOCUSATE SODIUM 100 MG CAPSULE (FP) PO SCH ×3 (05:38→22:03)
[2018-05-01] MEDS: THYROID 30 MG TABLET PO SCH (06:38)
[2018-05-01] MEDS: INSULIN SLIDING SCALE (NOVOLOG) 1 VIAL SQ SCH ×4 (06:39→22:08)
[2018-05-01] MEDS: SPIRONOLACTONE 25 MG TABLET (FP) PO SCH (09:52)
[2018-05-01] MEDS: RAMIPRIL 2.5 MG CAPSULE (FP) PO SCH (09:53)
[2018-05-01] MEDS: RANITIDINE HCL 150 MG TABLET (FP) PO SCH ×2 (09:57→22:04)
[2018-05-01] MEDS: POLYETHYLENE GLYCOL 3350 119 GM BTL PO SCH ×2 (09:57→22:05)
[2018-05-01] MEDS: BUDESONIDE/FORMETEROL FUMARATE 80/4.5 mcg INHALER IH SCH ×2 (09:58→22:20)
--- NOTE | 2018-05-01 10:09 | PN ---
Progress Note (short form) - Note Progress Note: PULMONARY Denies shortness of breath, cough or wheezing but hypoxic on room air per nursing. Vital Signs Period Temp Pulse Resp BP Sys/Calderón Pulse Ox Last 24 Hr 97.5 F-99.1 F 59-101 18-20 110-123/59-67 98 Gen: NAD at rest Heart: RRR Lung: decreased breath sounds at the bases Abd: soft, nontender Ext: left shoulder immobilized CBC, BMP 04/30/18 08:25 04/30/18 08:25 Active Medications Acetaminophen (Tylenol -) 650 mg PO Q6HPO [facility] Last Admin: 05/01/18 05:38 Dose: 650 mg Albuterol/Ipratropium (Duoneb -) 1 amp NEB Q6H PRN PRN Reason: SHORTNESS OF BREATH Budesonide/Formoterol Fumarate (Symbicort 80/4.5mcg -) 2 puff IH BID [facility] Last Admin: 05/01/18 09:58 Dose: 2 puff Docusate Sodium (Colace -) 100 mg PO TID [facility] Last Admin: 05/01/18 05:38 Dose: 100 mg Insulin Aspart (Novolog Vial Sliding Scale -) 1 vial SQ [facility]; Protocol Last Admin: 05/01/18 06:39 Dose: Not Given Ondansetron HCl (Zofran Injection) 4 mg IVPUSH Q6H PRN PRN Reason: NAUSEA AND/OR VOMITING Oxycodone HCl (Roxicodone -) 5 mg PO Q4H PRN PRN Reason: PAIN LEVEL 7 - 10 Polyethylene Glycol (Miralax (For Daily Use) -) 17 gm PO BID [facility] Last Admin: 05/01/18 09:57 Dose: 17 gm Ramipril (Altace -) 2.5 mg PO DAILY [facility] Last Admin: 05/01/18 09:53 Dose: 2.5 mg Ranitidine HCl (Zantac -) 150 mg PO BID [facility] Last Admin: 05/01/18 09:57 Dose: 150 mg Senna (Senna -) 2 tab PO HS [facility] Last Admin: 04/30/18 21:16 Dose: 2 tab Spironolactone (Aldactone -) 25 mg PO DAILY [facility] Last Admin: 05/01/18 09:52 Dose: 25 mg Thyroid ([place] Thyroid -) 30 mg PO ACBK [facility] Last Admin: 05/01/18 06:38 Dose: 30 mg A/P Left Shoulder Fracture s/p left shoulder replacement Interstitial Lung Disease HTN DM MVP Hypothyroidism - will order incentive spirometry - pain control - inhaled bronchodilators - rehab/PT - DVT prophylaxis
[2018-05-01] MEDS ORDERED: SODIUM CHLORIDE 0.9% 500 ML INFUS.BAG IV ONE (13:15)
--- NOTE | 2018-05-01 13:31 | DS ---
Physical Exam: SUBJECTIVE: Patient seen and examined; pain is controlled and is not requiring narcotics and is OK with being sent home without them. 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 Stewart, and he is OK with her being discharged home with followup in the next week (so 1 week after surgery). She will not complete inpatient PT as per social work due to healing/timing issues. After discussing with SW we will coordinate for home health and arrange for close OP followup with orthopedics, pulmonary, PCP; further rehab planning to be done per outpatient providers. Remains hemodynamically stable and afebrile. No c/o SOB. She doens 't use O2 at home and was able to be taken off of it; seen by Dr. Montalvo this AM for discussion of her interstitial lung disease and I did discuss the case with him. 10 sys ROS done and negative aside from HPI. OBJECTIVE: Vital Signs Period Temp Pulse Resp BP Sys/Calderón Pulse Ox Last 24 Hr 97.5 F-99.1 F 59-101 18-20 110-123/59-67 98 PHYSICAL EXAM GENERAL: The patient is awake, alert, and fully oriented, in no acute distress. HEAD: Normal with no signs of trauma. EYES: PERRL, extraocular movements intact, sclera anicteric, conjunctiva clear. ENT: Ears normal, nares patent, oropharynx clear without exudates, moist mucous membranes. NECK: Trachea midline, full range of motion, supple. LUNGS: Breath sounds equal, clear to auscultation bilaterally, no wheezes, no crackles, no accessory muscle use. HEART: Regular rate and rhythm, S1, S2 without murmur, rub or gallop. ABDOMEN: Soft, nontender, nondistended, normoactive bowel sounds EXTREMITIES: 2+ pulses, warm, well-perfused, no edema. L-arm in shoulder immobilizer, neurovascularly intact NEUROLOGICAL: Cranial nerves II through XII grossly intact. Normal speech, gait not observed. PSYCH: Normal mood, normal affect. SKIN: Warm, dry, normal turgor, no rashes or lesions noted. LABS Laboratory Results - last 24 hr 04/30/18 04/30/18 05/01/18 16:35 21:24 06:37 POC Glucometer 126 134 97 05/01/18 12:17 POC Glucometer 160 HOSPITAL COURSE: Date of Admission:04/27/18 Date of Discharge: 05/01/18 1) Fracture/Dislocation Shoulder s/p TSA POD#2 Dr. Lindsey -Continue immobilizer, wrist splint per ortho; followup with them next week per instructions -Not discharging on narcotics; can do 1g APAP ATC up to 4g daily -Images reviewed; fracture/dislocation of the L-humerus seen on XR from admission -Due to immobilizer spoke with SW and she wouln't be a candidate for rehab; she will go home with home health and have rehab arranged as an outpatient. -PCP 3-5 days 2) DM -Resume home treatment, followup with PCP. Was on SSI through her time here 3) Hypothyroidism -Followup as outpatient; no new issues inpatient 4) HTN -Continue home meds as outpt. without any changes 5) MVP -Followup OP; no new issues 6) Interstitial Lung Disease -Seen by Dr. Anthony's group as an inpatient; followup with them OP as directed. Appreciate their help in the ongoing management of this patient. Continue on home inhalers without any changes to be made. 7) COPD hx -As per above 8) Chronic Leukocytosis -No abberations here; old labs reviewed. Followup CBC with PCP 9) Lung nodules -Known; followup imaging with pulmonary medicine Full Code Followups -Dr. Anthony 1-2 weeks -PCP 3-5 days -Dr. Lindsey next week Minutes to complete discharge: 45 Discharge Summary Reason For Visit: ANTERIOR DISLOCATION OF HUMERUS,FX OF PROXIMAL END Current Active Problems Humeral fracture (Acute) Procedures: Principal: L-shoulder TSA Condition: Stable - Instructions Diet, Activity, Other Instructions: Resume home diet Please follow all activity instructions provided by orthopedic surgery including restrictions with lifting, etc. with the affected arm. Keep in sling and keep all followup appointment. Work with visiting nurse and follow all instructions with the orthopedic followup. Shoulder immobilizer Wrist splint until DCd by ortho Referrals: primary care,pcp [Other] - 1 Week (Followup in 3-5 days) Harris Lindsey MD [Staff Physician] - 1 Week (Please follow up NEXT WEEK with Dr. Lindsey in his office ) Disposition: HOME - Home Medications Comprehensive Discharge Medication List: Ambulatory Orders Ramipril 2.5 mg PO DAILY 08/20/14 Spironolactone [Aldactone -] 25 mg PO DAILY 08/20/14 Thyroid [[place] Thyroid] 30 mg PO DAILY 12/01/17 Home Medications Medication Instructions Recorded Ramipril 2.5 mg PO DAILY 08/20/14 Spironolactone [Aldactone -] 25 mg PO DAILY 08/20/14 Thyroid [[place] Thyroid] 30 mg PO DAILY 12/01/17 Acetaminophen [Tylenol .Regular 650 mg PO Q6HPO #60 tablet 05/01/18 Strength -] Docusate Sodium [Colace -] 100 mg PO TID 30 Days capsule 05/01/18 Salmeterol/Fluticasone [Advair 1 puff IH BID inhaler 05/01/18 100Mcg/50Mcg -] Sennosides [Senna -] 2 tab PO HS tablet 05/01/18 This patient is new to me today: Yes Date on this admission: 05/02/18 Emergency Visit: No Critical Care patient: No - Discharge Referral Referred to [facility] No
--- NOTE | 2018-05-01 16:08 | PATH ---
Surgical Pathology Report Patient Name: BAHMAN FUENTES Med. Rec. #: [id number] /Age/Gender: 1930 (Age: 88) / F Account: [id number] Location: [facility] MED/SURG Taken: 04/29/2018 Received: 04/30/2018 Reported: 05/01/2018 Physicians: Sujatha Degroot F.N.P. Specimen(s) Received LEFT HUMERAL PORTION OF Clinical History Anterior dislocation of humerus, fracture proximal end Final Diagnosis BONE, LEFT HUMERAL HEAD, EXCISION: BONE WITH INTERSTITIAL HEMORRHAGE CONSISTENT WITH FRACTURE. Electronically Signed Ariel Gramajo M.D. Gross Description Received in formalin labeled "portion of left humeral head," is a 4.0 x 3.5 x 1.1 cm portion of bone, consistent with a portion of humeral head. The articular surface is peace and focally granular. No areas of eburnation are identified. The underlying bone is yellow, hard and focally hemorrhagic. A canvas products sales representative section is submitted in one cassette, following decalcification. 04/30/201804/30/2018
[2018-05-01] MEDS ORDERED: INSULIN (NOVOLOG) ASPART 100 UNITS/ML 10ML VIAL ONE (21:53)
[2018-05-01] MEDS: SENNOSIDES 8.6MG TABLET (FP) PO SCH (22:03)
[2018-05-01] MEDS ORDERED: PT OWN MED DRAWER 7, Y5N ONE (22:17)
[2018-05-02] MEDS: ACETAMINOPHEN 325 MG TABLET (FP) PO SCH ×4 (01:04→12:13)
[2018-05-02] MEDS ORDERED: PT OWN MED DRAWER 7, Y5N ONE (06:08)
[2018-05-02] MEDS: DOCUSATE SODIUM 100 MG CAPSULE (FP) PO SCH ×2 (06:10→13:26)
[2018-05-02] MEDS: THYROID 30 MG TABLET PO SCH ×2 (06:11→10:21)
[2018-05-02] MEDS: INSULIN SLIDING SCALE (NOVOLOG) 1 VIAL SQ SCH ×3 (06:16→12:07)
[2018-05-02 09:46] LABS: ANION GAP 8 MMOL/L (8-16); BLOOD UREA NITROGEN 12 mg/dL (7-18); CALCIUM 8.2 mg/dL (8.5-10.1); CHLORIDE 107 mmol/L (98-107); CO2 28 mmol/L (21-32); CREATININE 0.5 mg/dL (0.55-1.3); GLUCOSE,RANDOM 92 mg/dL (74-106); POTASSIUM 3.9 mmol/L (3.5-5.1); SODIUM 143 mmol/L (136-145)
--- NOTE | 2018-05-02 10:17 | PN ---
Progress Note (short form) - Note Progress Note: Ortho Pt seen and examined s/p left reverse TSA pod #3 Selected Entries 05/02/18 06:00 Temperature 98.4 F Pulse Rate 89 Respiratory 20 Rate Blood Pressure 125/62 Laboratory Tests 05/02/18 08:40 WBC Pending Hgb Pending Hct Pending Plt Count Pending dressing c/d/i, + erythema, +ttp, + wrist drop, incr sensation and ROM a/p continue wrist splint shoulder immobilizer when not in PT PT for passive ROM exercises and ambulation ice to left shoulder 15 min q 3 hrs pain control d/c planning to snf
[2018-05-02] MEDS: RAMIPRIL 2.5 MG CAPSULE (FP) PO SCH ×2 (10:21→10:27)
[2018-05-02] MEDS: POLYETHYLENE GLYCOL 3350 119 GM BTL PO SCH ×2 (10:21→10:27)
[2018-05-02] MEDS: SPIRONOLACTONE 25 MG TABLET (FP) PO SCH ×2 (10:21→10:26)
[2018-05-02] MEDS: FLUTICASONE/SALMETEROL 100 MCG/50 MCG DISKUS IH SCH ×2 (10:22)
[2018-05-02] MEDS: RANITIDINE HCL 150 MG TABLET (FP) PO SCH (10:25)
[2018-05-02] MEDS: LIDOCAINE 5% TOPICAL PATCH TP SCH (10:25)
[2018-05-02] MEDS: BUDESONIDE/FORMETEROL FUMARATE 80/4.5 mcg INHALER IH SCH (10:28)
--- NOTE | 2018-05-02 12:24 | PN ---
Progress Note (short form) - Note Progress Note: Seen and examined; didn't go yesterday as ended up back on low flow O2. She is doing well and not SOB and never had any issues with SOB, cough, sputum. Known history of ILD following with Dr. Anthony and seen by Dr. Montalvo here. She wants to go home. -Spoke with pulmonary medicine; she can go home today if she is doing well off O2. I will touch base with respiratory to do a pre and a post here. She may eventually need home O2 and should see her primary in 3-5 days for this. -1-[address] Anthony NAD, AAO Lungs CTAB with occasional v. mild wheeze and sym exp RRR s1/2 no mgr NT ND +BS CN 2-12 wnl, no fnd NC AT [facility] Affected shoulder remains well, passive ROM with PT non painful, no new swelling , neurovascularly intact. Plan remains unchanged from [facility]; she is doing well off O2 at this juncture and can go home. Please refer to [facility] for further plans. If she ends up requiring more O2 we will get her placed on O2 at home. Visit type - Emergency Visit Emergency Visit: No - New Patient This patient is new to me today: No - Critical Care Critical Care patient: No
[2018-05-02 13:38] VITALS: BP 126/64; PULSE 98; TEMP 98.5
[2018-05-02 14:25] LABS: BASO % 0.6 % (0-2.0); EOS % 6.7 % (0-4.5); HEMATOCRIT 30.3 % (32.4-45.2); HEMOGLOBIN 10.6 GM/dL (10.7-15.3); LYMPH % 13.7 % (8-40); MEAN CELL VOLUME 94.5 fl (80-96); MEAN PLT VOLUME 9.6 fl (7.5-11.1); MONO % 10.7 % (3.8-10.2); NEUT % 68.3 % (42.8-82.8); PLATELET COUNT 154 K/MM3 (134-434); RDW 14.2 % (11.6-15.6); WHITE BLOOD COUNT 12.1 K/mm3 (4.0-10.0)
--- NOTE | 2018-05-02 14:46 | PN ---
Progress Note (short form) - Note Progress Note: PULMONARY Denies shortness of breath, cough or wheezing. Vital Signs Period Temp Pulse Resp BP Sys/Calder[place] Pulse Ox Last 24 Hr 98.2 F-98.6 F 89-112 18-20 98-129/52-64 98-98 Gen: NAD at rest Heart: RRR Lung: decreased breath sounds at the bases Abd: soft, nontender Ext: left shoulder immobilized CBC, BMP 05/02/18 08:40 05/02/18 08:40 Active Medications Acetaminophen (Tylenol -) 650 mg PO Q6HPO [facility] Last Admin: 05/02/18 12:13 Dose: Not Given Albuterol/Ipratropium (Duoneb -) 1 amp NEB Q6H PRN PRN Reason: SHORTNESS OF BREATH Budesonide/Formoterol Fumarate (Symbicort 80/4.5mcg -) 2 puff IH BID [facility] Last Admin: 05/02/18 10:28 Dose: 2 puff Docusate Sodium (Colace -) 100 mg PO TID [facility] Last Admin: 05/02/18 13:26 Dose: Not Given Insulin Aspart (Novolog Vial Sliding Scale -) 1 vial SQ [facility]; Protocol Last Admin: 05/02/18 12:07 Dose: Not Given Ondansetron HCl (Zofran Injection) 4 mg IVPUSH Q6H PRN PRN Reason: NAUSEA AND/OR VOMITING Oxycodone HCl (Roxicodone -) 5 mg PO Q4H PRN PRN Reason: PAIN LEVEL 7 - 10 Polyethylene Glycol (Miralax (For Daily Use) -) 17 gm PO BID [facility] Last Admin: 05/02/18 10:27 Dose: Not Given Ramipril (Altace -) 2.5 mg PO DAILY [facility] Last Admin: 05/02/18 10:27 Dose: 2.5 mg Ranitidine HCl (Zantac -) 150 mg PO BID [facility] Last Admin: 05/02/18 10:25 Dose: 150 mg Senna (Senna -) 2 tab PO HS [facility] Last Admin: 05/01/18 22:03 Dose: 2 tab Spironolactone (Aldactone -) 25 mg PO DAILY [facility] Last Admin: 05/02/18 10:26 Dose: 25 mg Thyroid (Byron Thyroid -) 30 mg PO ACBK [facility] Last Admin: 05/02/18 06:11 Dose: 30 mg A/P Left Shoulder Fracture s/p left shoulder replacement Interstitial Lung Disease HTN DM MVP Hypothyroidism - incentive spirometry - pain control - inhaled bronchodilators - rehab/PT - DVT prophylaxis
== END 2018-05-02 15:18 | DRG 483 ==
LOC: JER 14:22 → JERBED 15:54 → J8W 04-28 14:32
PROVIDERS: ADMIT Internal Medicine; ATTEND Internal Medicine
PROC: 30233N1 Transfusion of Nonautologous Red Blood Cells into Peripheral Vein, Percutaneous Approach (ICD-10-PCS; 2018-04-29)
PROC: 0RRK00Z Replacement of Left Shoulder Joint with Reverse Ball and Socket Synthetic Substitute, Open Approach (ICD-10-PCS; principal; 2018-04-29 08:00)
DX: S42.252A Displaced fracture of greater tuberosity of left humerus, initial encounter for closed fracture (principal); J84.9 Interstitial pulmonary disease, unspecified; D62 Acute posthemorrhagic anemia; W19.XXXA Unspecified fall, initial encounter; Y93.9 Activity, unspecified; Y92.89 Other specified places as the place of occurrence of the external cause; Y99.9 Unspecified external cause status; E11.9 Type 2 diabetes mellitus without complications; I10 Essential (primary) hypertension; E03.9 Hypothyroidism, unspecified; J44.9 Chronic obstructive pulmonary disease, unspecified; D72.829 Elevated white blood cell count, unspecified; R91.8 Other nonspecific abnormal finding of lung field
CPT/HCPCS: 36415; 36430; 73030-TC-LT-FY; 73070-TC-LT-FY; 73090-TC-LT-FY; 80048; 80053; 80061; 81003; 82962; 83036; 83721; 83735; 84100; 85025; 85027; 85610; 86850; 86900; 86901; 86922; 87040; 88304-TC; 88311-TC; 93005; 93010; 94010; 94760; 97116-GP; 97161-GP; 99285-25; J1644; P9038; P9058